=== PATIENT | female | born 1950 | race Caucasian/White ===

== ENCOUNTER → 2016-12-07 10:58 | Outpatient (CLI) | payer OTHER, MEDICARE ==
[2011-10-23 07:17] VITALS: BMI 33.5
== END | disposition home or self-care (01) ==
LOC: D.US 10:58
DX: M79.1 Myalgia (principal)

== ENCOUNTER 2017-09-24 19:03 | Emergency (ER) | payer OTHER, MEDICARE ==
[~2017-09-24] VITALS: Ht 157.5 cm; Wt 90.5 kg
[2017-09-24 19:19] VITALS: Ht 157.5 cm; Wt 90.5 kg
[2017-09-24] MEDS ORDERED: CYCLOBENZAPRINE10 MG PO (19:22)
[2017-09-24] MEDS ORDERED: OMEPRAZOLE20 M1 PO (19:22)
[2017-09-24] MEDS ORDERED: NORVASC10 MG PO (19:22)
[2017-09-25 05:29] VITALS: BP 138/75
== END 2017-09-24 22:38 | disposition home or self-care (01) ==
LOC: D.ER 19:03
DX: M54.2 Cervicalgia (principal); Z86.79 Personal history of other diseases of the circulatory system; J44.9 Chronic obstructive pulmonary disease, unspecified; Z85.528 Personal history of other malignant neoplasm of kidney; F17.200 Nicotine dependence, unspecified, uncomplicated

== ENCOUNTER → 2018-01-17 16:25 | Outpatient (CLI) | payer OTHER, MEDICARE ==
[2017-09-24 19:19] VITALS: BMI 36.5
[~2018-01-17 16:25] MED LIST: CYCLOBENZAPRINE10 MG PO; NORVASC10 MG PO; OMEPRAZOLE20 M1 PO
== END | disposition home or self-care (01) ==
LOC: D.CT 16:25
PROVIDERS: Family Medicine
DX: Z12.31 Encounter for screening mammogram for malignant neoplasm of breast (principal); G45.9 Transient cerebral ischemic attack, unspecified

== ENCOUNTER → 2018-04-18 08:26 | Outpatient (CLI) | payer OTHER, MEDICARE ==
[2017-09-24 19:19] VITALS: BMI 36.5
[2018-04-18 09:14] LABS: BASOPHILS 0.9 % (0-2); EOSINOPHILS 3.4 % (0-7); HEMATOCRIT 42.6 % (36.0-48.0); HEMOGLOBIN 14.3 g/dL (12-16); IMMATURE GRANULOCYTES 0.1 % (0-5); LYMPHOCYTES 30.8 % (15-50); MCH 29.4 pg (26.0-34.0); MCHC 33.6 g/dL (31.0-37.0); MCV 87.5 fL (80.0-100.0); MEAN PLATELET VOLUME 11.3 fL (7.4-10.4); MONOCYTES 5.7 % (2-11); NEUTROPHILS 59.1 % (40-80); PLATELET COUNT 293 10x3/uL (130-400); RBC 4.87 10x6/uL (4.00-5.40); RDW 14.2 % (11.5-14.5); WBC 6.8 10x3/uL (4.8-10.8)
[2018-04-19 08:19] LABS: IMMUNOGLOBULIN A 194 mg/dL (87-352); IMMUNOGLOBULIN G 673 mg/dL (700-1600)
[2018-04-21 18:06] LABS: IMMUNOGLOBULIN E 297 IU/mL (0-100)
== END | disposition home or self-care (01) ==
LOC: D.RT 04-16 11:00 → D.LAB 08:00 → D.RAD 09:30 → D.RT 10:00
PROVIDERS: Internal Medicine Pulmonary Disease
DX: J44.9 Chronic obstructive pulmonary disease, unspecified (principal); J30.9 Allergic rhinitis, unspecified

== ENCOUNTER → 2018-05-20 10:25 | Outpatient (CLI) | payer OTHER, MEDICARE ==
[2017-09-24 19:19] VITALS: BMI 36.5
== END | disposition home or self-care (01) ==
LOC: D.HCCARDIO 10:25
PROVIDERS: ATTEND Internal Medicine Cardiovascular Disease
DX: I25.10 Atherosclerotic heart disease of native coronary artery without angina pectoris (principal)

== ENCOUNTER 2018-05-28 07:51 | Outpatient (CLI) | payer OTHER, MEDICARE ==
[~2018-05-28] VITALS: Ht 157.5 cm; Wt 85.9 kg
--- NOTE | ~2018-05-28 | HEMODYNAMI ---
PATIENT:MARITA LADD MEDICAL RECORD: [id number] : 52 LOCATION:[facility] ADMISSION DATE: 05/28/18 Generatedon:05/28/201810:01 Patient name: MARITA LADD Patient #: [id number] SSN: D OB: 1950 Date of study: 05/28/2018 Page: Of Hemodynamic Procedure Report Patient Data Patient Demographics Procedure consent was obtained First Name: MARITA Gender: Female Last Name: JULEE : 1950 Middle Initial: A Age: 67 year(s) Patient #: [id number] Race: Unknown Additional ID: [id number] Contact details [address]: [address] [place] [address] State: [place] City: [place] Zip code: [address] Past Medical History Allergies: No known allergies Admission Admission Data Admission Date: 05/28/2018 Admission Time: 7:51 Height (in.): 62 BSA: 1.87 (m2) Height (cm.): 157.48 BMI: 34.64 (kg/m2) Weight (lbs.): 189.38 Weight (kg.): 85.9 Lab Results Lab Result Date: 05/28/2018 Lab Result Time: 0:00 Biochemistry Name Units Result Min Max BUN mg/dl 15 --(--*-)-- 7 18 Creatinine mg/dl 1.1 --(--*-)-- 0.6 1.3 Procedure Procedure Types Cath Procedure Diagnostic Procedure LHC LHC w/Coronaries FFR/IVUS Intra-Coronary IVUS Initial Sedation Charges Moderate Sedation up to 15 minutes Procedure Description Procedure Date Procedure Date: 05/28/2018 Procedure Start Time: 9:47 Procedure End Time: 9:59 Procedure Staff Name Function Randy Gallegos MD Performing Physician Brenda Ann RT Monitor Davie Rice RT Scrub Fanny Riley RN Nurse Procedure Data Cath Procedure Fluoroscopy Diagnostic fluoroscopy Total fluoroscopy Time: 1.7 time: 1.7 min min Diagnostic fluoroscopy Total fluoroscopy dose: dose: 177.5 mGy 177.5 mGy Contrast Material Contrast Material Type Amount (ml) Isovue 300 64 Entry Location Entry Primary Successful Side Size Upsize Upsize Entry Closure Succes sful Closure Location (Fr) 1 (Fr) 2 (Fr) Remarks Device Remarks Femoral Right 5 Fr 6 Fr Exoseal artery Short Estimated blood loss: 5 ml Diagnostic catheters Device Type Used For End Catheter Placement MULTIPACK Pigtail 5 Fr Procedure catheter MULTIPACK JL 4.0 5Fr Procedure catheter MULTIPACK 3DRC 5Fr Procedure catheter Procedure Complications No complications Procedure Medications Medication Administration Route Dosage Oxygen etCO2 Nasal cannula 2 l/min Lidocaine 2% added to field 20 Heparin Flush Bag added to field 2 bags (1000units/500ml NS) 0.9% NaCl I.V. 100 ml/hr Versed I.V. 1 mg Fentanyl I.V. 50 mcg Versed I.V. 1 mg Fentanyl I.V. 50 mcg Versed I.V. 1 mg Fentanyl I.V. 50 mcg Versed I.V. 1 mg Fentanyl I.V. 50 mcg Hemodynamics Rest BSA: 1.87 (m2) O2 Consumption: Estimated: 175.79 (ml/min) O2 Consumption indexed : Estimated:94.01 (ml/min/m) Heart Rate: 72 (bpm) Snapshots Pre Cath Intra NCS Post Cath Vital Signs Time Heart Resp SPO2 etCO2 NIBP (mmHg) Rhythm Pain Sedation Rate (ipm) (%) (mmHg) Status Level (bpm) 9:20:37 74 17 99 25 142/75(118) NSR 0 (11) 10(A) , No pain 9:24:59 69 16 99 40.9 143/69(113) NSR 0 (11) 10(A) , No pain 9:29:17 71 16 97 43.2 128/73(107) NSR 0 (11) 10(A) , No pain 9:33:38 72 16 95 37.1 117/73(113) NSR 0 (11) 10(A) , No pain 9:37:56 76 15 93 37.9 130/72(106) NSR 0 (11) 10(A) , No pain 9:43:03 74 17 96 41.7 131/77(112) NSR 0 (11) 9(A) , No pain 9:47:15 77 14 95 39.4 119/74(95) NSR 0 (11) 9(A) , No pain 9:51:27 79 16 95 44.8 113/83(110) NSR 0 (11) 9(A) , No pain 9:55:37 79 17 96 44.7 110/76(103) NSR 0 (11) 10(A) , No pain Medications Time Medication Route Dose Verified Delivered Reason Notes Effe ctiveness by by 9:23:50 Oxygen etCO2 2 Randy Buffie used for Nasal l/min Rosy Riley RN procedure cannula 9:23:58 Lidocaine 2% added 20ml Randy Randy for local to vial Rosy Gallegos MD anesthetic field 9:24:06 Heparin Flush added 2 Randy Randy used for Bag to bags Rosy Gallegos MD procedure (1000units/500ml field NS) 9:24:18 0.9% NaCl I.V. 100 Randy Buffie used for ml/hr Rosy Riley RN procedure 9:33:20 Versed I.V. 1 mg Randy Anayaie for Rosy Rilye RN sedation 9:33:26 Fentanyl I.V. 50 Randy Buffie for karuna Riley RN sedation 9:39:30 Versed I.V. 1 mg Randy Buffie for Rosy Riley RN sedation 9:39:34 Fentanyl I.V. 50 Randy Buffie for karuna Riley RN sedation 9:45:54 Versed I.V. 1 mg Randy Buffie for Rosy Riley RN sedation 9:45:58 Fentanyl I.V. 50 Randy Buffie for karuna Riley RN sedation 9:53:22 Versed I.V. 1 mg Randy Buffie for Rosy Riley RN sedation 9:53:27 Fentanyl I.V. 50 Randy Buffie for karuna Riley RN sedation Procedure Log Time Note 8:35:28 Patient Weight : 189.38 lbs 8:35:41 Patient Height : 62 inches 8:35:45 Signed procedure consent form obtained from patient. 8:35:47 Diagnostic Cath status Elective 8:35:49 Time tracking: Regular hours (M-F 7:00 - 5:00) 8:35:54 Plan of Care:Hemodynamics will remain stable., Cardiac rhythm will remain stable., Comfort level will be maintained., Respiratory function will remain adequate., Patient/ family verbilizes understanding of procedure., Procedure tolerated without complication., Recovers from procedure without complications.. 9:07:25 Davie Rileyyder RT(R) sent for patient. Start room use. 9:12:55 Patient received from Pre/Post Procedure Room to CCL 3 Alert and oriented. Tansferred to table in Supine position. 9:12:56 Warm blankets applied, and lianne hugger turned on for patient comfort. 9:12:56 Correct patient and procedure confirmed by team. 9:12:57 ECG and BP/O2 sat monitors applied to patient. 9:19:19 Vital chart was started 9:19:23 Baseline sample Acquired. 9:19:27 Rhythm: sinus rhythm 9:19:28 Full Disclosure recording started 9:19:39 H&P Date Dictated: 05/13/2018 Within 30 days and on chart., H&P Addendum completed by physician on day of procedure. (MUST COMPLETE FOR ALL OUTPATIENTS). 9:19:42 Family in patients room. 9:19:43 Patient NPO since Midnight. 9:19:54 Patient allergic to No known allergies 9:20:03 Is patient on blood thinner?Yes 9:20:13 PRE LOADED ON PLAVIX 9:20:16 Patient diabetic? No. 9:20:21 Previous problem with sedation/anesthesia? No ? 9:20:23 Snore? Yes 9:20:24 Sleep apnea? No 9:20:25 Deviated septum? No 9:20:26 Opens mouth fully? Yes 9:20:27 Sticks out tongue? Yes 9:20:34 Airway obstruction? Yes ASTHMA 9:20:40 Dentures? Yes IN TIGHT 9:20:43 Pre procedure: right dorsailis pedis pulse 1+ Palpable, but thready & weak; easily obliterated 9:20:46 Patient pain scale 0/10 ?. 9:20:49 IV patent on arrival in left hand with 0.9% NaCl at [facility]. 9:23:50 Oxygen 2 l/min etCO2 Nasal cannula was administered by Fanny Riley RN; used for procedure; 9:23:58 Lidocaine 2% 20ml vial added to field was administered by Randy Gallegos MD; for local anesthetic; 9:24:06 Heparin Flush Bag (1000units/500ml NS) 2 bags added to field was administered by Randy Gallegos MD; used for procedure; 9:24:18 0.9% NaCl 100 ml/hr I.V. was administered by Fanny Riley RN; used for procedure; 9::43 Lab results completed and on chart. 9::12 Lab Result : BUN 15 mg/dl 9::12 Lab Result : Creatinine 1.1 mg/dl 9::25 Right groin area was prepped with chlora-prep and draped in sterile fashion 9:: Alarms reviewed by R. N. 9:: Sharps counted by scrub and verified by R.N. 9:28:02 Use device set Femoral Dx 9:28:03 ACIST Syringe (43616) opened to sterile field. 9:28:04 Bag Decanter (2002S) opened to sterile field. 9:28:05 ACIST Hand Control (25631) opened to sterile field. 9:28:05 ACIST Manifold (17462) opened to sterile field. 9:28:06 Tegaderm 4 x 4 (1626W) opened to sterile field. 9:28:07 Medline Cath Pack ([id number]) opened to sterile field. 9:28:08 DIAGNOSTIC WIRE .035 260cm J wire (436952) opened to sterile field. 9:28:08 DIAGNOSTIC Multipack 5Fr catheter set (SU7209) opened to sterile field. 9:28:09 SHEATH 5FR [place] (SNS404) opened to sterile field. 9:29:48 Zero performed for pressure channel P1 9:29:53 Zero performed for pressure channel P1 9:32:30 --------ALL STOP TIME OUT------ 9:32:31 Final Timeout: patient, procedure, and site verified with staff and physician. All members of the team are in agreement. 9:32:32 Right groin site verified by team. 9:32:35 Maximum allowable Isovue 300 dose 300ml. Physician notified. (300ml for normal creatinines. For patients with creatinine of 1.7 or higher multiply weight(kg) x 5 divided by creatinine.) 9:32:39 Fire Safety Assessment: A--An alcohol-based skin anteseptic being used preoperatively., C--Open oxygen or nitrous oxide is being used., D--An ESU, laser, or fiber-optic light is being used. 9:32:41 Physical assessment completed. ASA score P 2 - A patient with mild systemic disease as per Randy Gallegos MD. 9:32:44 Sedation plan: IV Moderate Sedation Medication:Versed, Fentanyl 9:33:20 Versed 1 mg I.V. was administered by Fanny Riley RN; for sedation; 9:33:26 Fentanyl 50 mcg I.V. was administered by Fanny Riley RN; for sedation; 9:39:30 Versed 1 mg I.V. was administered by Fanny Riley RN; for sedation; 9:39:34 Fentanyl 50 mcg I.V. was administered by Fanny Riley RN; for sedation; 9:45:54 Versed 1 mg I.V. was administered by Fanny Riley RN; for sedation; 9:45:58 Fentanyl 50 mcg I.V. was administered by Fanny Riley RN; for sedation; 9:47:24 Procedure started. 9:47:51 Local anesthetic to right femoral artery with Lidocaine 2% by Randy Gallegos MD.INITIAL ACCESS ONLY 9:49:04 A 5 Fr sheath was inserted into the Right Femoral artery 9:49:10 A MULTIPACK Pigtail 5 Fr catheter was advanced over the wire and used for Procedure. 9:49:12 LV gram done using PREEZ 9:49:15 Injector settings: Ml/sec: 10, Volume: 20, 9:49:42 EF : 70 % 9:49:42 Catheter removed. 9:49:50 A MULTIPACK JL 4.0 5Fr catheter was advanced over the wire and used for Procedure. 9:50:48 LCA angiography performed. 9:51:38 A MULTIPACK 3DRC 5Fr catheter was advanced over the wire and used for Procedure. 9:52:17 RCA angiography performed. 9:52:18 Catheter removed. 9:52:33 SHEATH 6FR [place] (IVD934) opened to sterile field. 9:52:34 INFLATOR Merit BasixCompak (KX6205) opened to sterile field. 9:52:34 CHOICE PT Extra Support 182cm wire ([id number]) opened to sterile field. 9:52:38 [place] IVUS Catheter (91226U) opened to sterile field. 9:52:44 Sheath upsized to a 6 Fr Short. 9:53:10 GUIDE 6FR XBLAD 3.5 catheter ([id number]) opened to sterile field. 9:53:22 Versed 1 mg I.V. was administered by Fanny Riley RN; for sedation; 9:53:27 Fentanyl 50 mcg I.V. was administered by Fanny Riley RN; for sedation; 9:53:27 6 Fr XBLAD 3.5 guide catheter was inserted over the wire 9:53:51 CHOICE ES 182 wire advanced. 9:54:14 Wire advanced across lesion. 9:55:09 IVUS catheter advanced over wire. 9:55:11 IVUS pass to Circ lesion performed. 9:55:11 IVUS catheter removed over wire. 9:55:32 Wire removed. 9:55:32 Guide catheter removed. 9:55:38 EXOSEAL 6Fr (EX600) opened to sterile field. 9:56:18 Sheath removed intact; hemostasis achieved with Exoseal to the Right Femoral artery. 9:56:24 Procedure ended.(Physican Out) 9:56:35 Fluoroscopy time 01.70 minutes. 9:56:40 Fluoroscopy dose: 177.5 mGy 9:56:40 Flurop Dose total: 177.5 9:56:44 Contrast amount:Isovue 300 64ml. 9:56:45 Sharps counted by scrub and verified by R.N. 9:56:48 Post-op/insertion site Right Femoral artery dressed using a 4 x 4 and Tegaderm. 9:57:23 Post-procedure physical assessment completed. ASA score P 2 - A patient with mild systemic disease as per Randy Gallegos MD. 9:57:26 Post procedure rhythm: sinus rhythm 9:57:28 Estimated blood loss: 5 ml 9:57:29 Post procedure instruction explained to patient.Patient verbalizes understanding. 9:57:29 Patient needs reinforcement of post procedure teaching. 9:57:56 Procedure type changed to Cath procedure, Diagnostic procedure, LHC, LHC w/Coronaries, FFR/IVUS, Intra-Coronary IVUS Initial, Sedation Charges, Moderate Sedation up to 15 minutes 9:58:53 Procedure and supply charges have been captured, reviewed, submitted and are correct. 9:58:55 Procedure Complication : No complications 9:58:57 Vital chart was stopped 9:58:57 See physician's report for complete and final results. 9:58:58 Report given to Pre/Post Procedure Room. 9:59:00 Patient transfered to Pre/Post Procedure Room with Bed. 9:59:02 Procedure ended. 9:59:02 Full Disclosure recording stopped 9:59:09 End room use (Document Last) Device Usage Item Name Manufacture Quantity Catalog Number Hospital Part Current Minim al Lot# / Charge Number Stock Stock Serial# Code ACIST Acist 1 42979 114642 623253 217607 20 Syringe Medical (87162) Systems Inc Bag Microtek 1 743987 62865 458028 5 Decanter Medical Inc. () ACIST Hand Acist 1 30457 655127 734755 168460 5 Control Medical (47423) Systems Inc ACIST Acist 1 58105 385552 860117 275753 5 Manifold Medical (35611) Systems Inc Tegaderm 4 3M 1 1626W 768954 612740 948362 5 x 4 (1626W) Medline Medline 1 [id number] 218773 95430 709029 5 Cath Pack ([id number]) DIAGNOSTIC [place] 1 023755 434504 908385 234351 30 WIRE .035 260cm J wire (877272) DIAGNOSTIC Cardinal 1 LZ4970 311427 39588 243899 30 Multipack Health 5Fr catheter set (DZ2561) SHEATH 5FR Terumo 1 FZY594 982207 967515 940084 5 [place] (XHL027) MULTIPACK Cardinal 1 730381 5 Pigtail 5 Health Fr catheter MULTIPACK Cardinal 1 750347 5 JL 4.0 5Fr Health catheter MULTIPACK Cardinal 1 051598 5 3DRC 5Fr Health catheter SHEATH 6FR Terumo 1 AUU099 099362 696780 875807 40 [place] (VBV693) INFLATOR Merit 1 TU2610 219326 480659 438540 15 baseclick Medical BasixCompak (JU1162) CHOICE PT [place] 1 [id number] 723778 146314 871134 5 Extra Scientific Support 182cm wire ([id number]) [place] 1 40325E 862076 007829 280843 8 [place] Eag[place] IVUS Catheter (78226C) GUIDE 6FR Cardinal 1 [id number] 006207 051323 072439 10 XBLAD 3.5 Health catheter (58271153) EXOSEAL 6Fr Cardinal 1 EX600 463401 786658 122945 10 (EX600) Health Signature Audit [place] Stage Time Signature Unsigned Intra-Procedure 05/28/2018 Brenda Ann 10:01:13 AM RT(R) Signatures Monitor : Brenda Ann Signature : RT Date : Time : [place] [id number] [place] [address]
[2018-05-28] MEDS ORDERED: K-TAB10 MEQ PO (08:10)
[2018-05-28] MEDS ORDERED: LIPITOR10 MG PO (08:10)
[2018-05-28] MEDS ORDERED: ROPINIROLE HCL2 MG PO (08:11)
[2018-05-28] MEDS ORDERED: HYDROCODON-ACE1 EA10 PO (08:11)
[2018-05-28] MEDS ORDERED: IPRAT-ALBUT 0.5-3 ML UPD (08:12)
[2018-05-28] MEDS ORDERED: CATAPRES0.1 MG PO (08:12)
[2018-05-28] MEDS ORDERED: BAYER CHEWABLE81 MG PO (08:14)
[2018-05-28] MEDS ORDERED: ANORO ELLIPTA1 EACH INH (08:14)
[2018-05-28] MEDS ORDERED: VENTOLIN INH (08:14)
[2018-05-28] MEDS ORDERED: TESSALON PERLE100 MG PO (08:15)
[2018-05-28] MEDS ORDERED: MUCINEX600 MG PO (08:15)
[2018-05-28] MEDS ORDERED: CLARITIN 10 MG10 MG PO (08:15)
[2018-05-28 08:24] VITALS: BP 153/77; Ht 157.5 cm; Wt 85.9 kg
[2018-05-28 08:44] LABS: ANION GAP 11.7 mmol/L (8-16); CALCIUM 8.8 mg/dL (8.5-10.1); CARBON DIOXIDE 31.1 mmol/L (21.0-32.0); CREATININE - SERUM 1.1 mg/dL (0.6-1.3); POTASSIUM - SERUM 3.8 mmol/L (3.5-5.1)
[2018-05-28 09:48] LABS: EOSINOPHILS 2.9 % (0-7); HEMATOCRIT 45.2 % (36.0-48.0); HEMOGLOBIN 14.6 g/dL (12-16); IMMATURE GRANULOCYTES 0.2 % (0-5); LYMPHOCYTES 28.9 % (15-50); MCH 28.8 pg (26.0-34.0); MCHC 32.3 g/dL (31.0-37.0); MCV 89.2 fL (80.0-100.0); MEAN PLATELET VOLUME 11.2 fL (7.4-10.4); MONOCYTES 8.2 % (2-11); NEUTROPHILS 58.8 % (40-80); RBC 5.07 10x6/uL (4.00-5.40); RDW 14.9 % (11.5-14.5); WBC 6.2 10x3/uL (4.8-10.8)
[2018-05-28 10:05] LABS: PLATELET COUNT 364 10x3/uL (130-400)
--- NOTE | 2018-05-31 15:03 | OP ---
PATIENT NAME: MARITA LADD MEDICAL RECORD: [id number] :52 LOCATION:D.CAT ADMISSION DATE: SURGEON: SERA MILES MD DATE OF OPERATION: 05/28/2018 PROCEDURES: 1. Left heart catheterization. 2. Selective coronary angiography. 3. Left ventriculogram. 4. Intravascular ultrasound. INDICATION: Angina and coronary artery disease. PROCEDURE IN DETAIL: After informed consent was obtained and after a detailed description of risks, benefits as well as alternative therapies, the patient elected to proceed with angiogram and heart catheterization. The right femoral area was prepped and draped in normal sterile fashion. Right femoral artery was cannulated via modified Seldinger technique with placement of 6-Israeli sheath. All catheters exchanged through this sheath. FINDINGS: Left ventriculogram was performed in standard 30-degree PEREZ view reveals good cardiac wall motion throughout all segments. Overall ejection fraction estimated 60%. SELECTIVE CORONARY ANGIOGRAPHY: 1. Left main is with no significant angiographic disease. 2. Left anterior descending has moderate irregularities, but no flow-limiting stenosis. 3. The left circumflex has a previously placed stent. This is widely patent confirmed by intravascular ultrasound. No disease elsewise throughout the circumflex or its branches. 4. Right coronary artery has mild irregularities, but no flow-limiting stenosis. OVERALL IMPRESSION: Wide patency of the previously placed stent in the circumflex, no disease elsewise. Continue medical management of the coronary artery disease and cardiac risk factors. TRANSINT:[id number] Voice Confirmation ID: [id number] DOCUMENT ID: [id number] SERA MILES MD at 1503 CC: [id number] DICTATION DATE: 05/28/18 0959 DIRECTOR OF INFECTION CONTROL: 05/28/18 1207 DEP CLI 05/28/18 [place] [id number] [place] [address]
== END 2018-05-28 12:05 | disposition home or self-care (01) ==
LOC: D.CATH 07:51
PROVIDERS: ATTEND Internal Medicine Interventional Cardiology
DX: I25.119 Atherosclerotic heart disease of native coronary artery with unspecified angina pectoris (principal); Z01.812 Encounter for preprocedural laboratory examination

== ENCOUNTER 2018-07-18 09:00 | Outpatient (CLI) | payer OTHER, MEDICARE ==
[2018-05-28 08:24] VITALS: BMI 34.6
[~2018-07-18 09:00] MED LIST changes: +ANORO ELLIPTA1 EACH INH; +BAYER CHEWABLE81 MG PO; +CATAPRES0.1 MG PO; +CLARITIN 10 MG10 MG PO; +HYDROCODON-ACE1 EA10 PO; +IPRAT-ALBUT 0.5-3 ML UPD; +K-TAB10 MEQ PO; +LIPITOR10 MG PO; +MUCINEX600 MG PO; +ROPINIROLE HCL2 MG PO; +TESSALON PERLE100 MG PO; +VENTOLIN INH
== END 2018-07-18 10:00 | disposition home or self-care (01) ==
LOC: D.MAMMO 09:00
PROVIDERS: ATTEND Family Medicine
DX: Z12.31 Encounter for screening mammogram for malignant neoplasm of breast (principal)

== ENCOUNTER → 2019-03-12 18:52 | Outpatient (CLI) | payer OTHER, MEDICARE ==
[2018-05-28 08:24] VITALS: BMI 34.6
== END | disposition home or self-care (01) ==
LOC: D.LABREF 18:52
PROVIDERS: ATTEND Orthopaedic Surgery
DX: M19.012 Primary osteoarthritis, left shoulder (principal)

== ENCOUNTER 2019-03-21 08:33 | Inpatient (IN) | payer OTHER, MEDICARE ==
[~2019-03-21] VITALS: Ht 157.5 cm; Wt 81.8 kg
[2019-03-28 10:42] LABS: BASOPHILS 0.9 % (0-2); EOSINOPHILS 2.5 % (0-7); HEMATOCRIT 44.5 % (36.0-48.0); HEMOGLOBIN 14.6 g/dL (12-16); IMMATURE GRANULOCYTES 0.2 % (0-5); LYMPHOCYTES 26.3 % (15-50); MCH 29.5 pg (26.0-34.0); MCHC 32.8 g/dL (31.0-37.0); MCV 89.9 fL (80.0-100.0); MEAN PLATELET VOLUME 10.9 fL (7.4-10.4); NEUTROPHILS 64.1 % (40-80); PLATELET COUNT 316 10x3/uL (130-400); RBC 4.95 10x6/uL (4.00-5.40); RDW 14.8 % (11.5-14.5); WBC 5.6 10x3/uL (4.8-10.8)
[2019-03-28] MEDS ORDERED: HYDROCODON-ACE1 EA10 PO (10:48)
[2019-03-28] MEDS ORDERED: FUROSEMIDE20 MG PO (10:49)
[2019-03-28 11:12] LABS: ANION GAP 8.6 mmol/L (8-16); CALCIUM 8.7 mg/dL (8.5-10.1); CARBON DIOXIDE 33.4 mmol/L (21.0-32.0)
[2019-03-28 11:13] LABS: APTT 25.9 SECONDS (22.8-39.4); INR 0.93 (0.85-1.17); PROTIME 12.4 SECONDS (11.6-15.0)
[2019-03-28 11:32] LABS: APPEARANCE CLEAR (CLEAR); BILIRUBIN NEGATIVE (NEGATIVE); COLOR YELLOW (YELLOW); GLUCOSE NEGATIVE (NEGATIVE); KETONE NEGATIVE (NEGATIVE); NITRITE NEGATIVE (NEGATIVE); PROTEIN NEGATIVE (NEGATIVE); UROBILINOGEN NORMAL (NORMAL)
[2019-03-31] MEDS ORDERED: DONEPEZIL HCL5 MG PO (08:03)
[2019-03-31] MEDS ORDERED: CELEXA20 MG PO (08:04)
[2019-03-31] MEDS ORDERED: ISOSORBIDE DINI30 MG PO (08:04)
[2019-03-31 08:07] VITALS: BP 118/63; BMI 30.6
[2019-03-31 13:31] VITALS: BP 117/43
[2019-03-31 15:19] VITALS: BP 111/58; Ht 157.5 cm; Wt 81.8 kg
--- NOTE | 2019-03-31 18:11 | NUR ---
PATIENT RESTING WITH EYES CLOSED, AROUSES EASILY. DENIES PAIN , DRESSING TO LEFT SHOULDER C/D/I. ICE PACK APPLIED TO LEFT SHOULDER, SLING INTACT. CL IN REACH
--- NOTE | 2019-03-31 19:25 | NUR ---
IN BED WITH ARM IN SLING AND ICE PACKS APPLIED, ABLE TO VOICE ALL NEEDS. DENIES PAIN AT THIS TIME. SHOWS NO S/S OF ANY ACUTE DISTRESS.
[2019-03-31 21:03] VITALS: BP 100/62
[2019-04-01 00:30] VITALS: BP 108/67
[2019-04-01 04:15] VITALS: BP 121/54
[2019-04-01 06:08] LABS: HEMATOCRIT 41.2 % (36.0-48.0); HEMOGLOBIN 13.1 g/dL (12-16); MCH 28.9 pg (26.0-34.0); MCHC 31.8 g/dL (31.0-37.0); MCV 90.7 fL (80.0-100.0); MEAN PLATELET VOLUME 11.8 fL (7.4-10.4); RBC 4.54 10x6/uL (4.00-5.40); RDW 14.7 % (11.5-14.5); WBC 11.3 10x3/uL (4.8-10.8)
[2019-04-01 07:53] VITALS: BP 137/75
[2019-04-01] MEDS ORDERED: HYDROCODON-ACE1 EA10 PO (09:41)
--- NOTE | 2019-04-01 11:30 | NUR ---
PATIENT RECIEVED DC INSTRUCTIONS. VERBALIZED UNDERSTANDING. IV REMOVED WITH CATH TIP INTACT. EXPLAINED TO PICK PRESCRIPTION UP AT [facility]. NO QUESTIONS AT THIS TIME. WAITING FOR TRANSPORTATION. CALL LIGHT WITHIN REACH.
[2019-04-01 11:31] VITALS: BP 118/62
--- NOTE | 2019-04-03 11:49 | OP ---
PATIENT NAME: MARITA LADD MEDICAL RECORD: [id number] :52 LOCATION:D.MS [id number] ADMISSION DATE:03/31/19 SURGEON: JERRICA CELMENT MD DATE OF OPERATION: 03/31/2019 PREOPERATIVE DIAGNOSIS: Degenerative arthritis of left shoulder. POSTOPERATIVE DIAGNOSIS: Degenerative arthritis of left shoulder. PROCEDURE: Left total shoulder arthroplasty. SURGEON: Jerrica Clement MD EMBEDDED SOFTWARE ENGINEER: Gunner Lincoln APN INTRAOPERATIVE COMPLICATIONS: None. SUMMARY OF PATHOLOGIC FINDINGS: The patient was indeed found to have glenohumeral degenerative osteoarthritis consistent with preoperative radiographs and patient diagnosis. IMPLANTS USED: Arthrex total shoulder system was utilized, size 47 x 18 humeral head component, size 7 short stem and a size small glenoid component. ESTIMATED BLOOD LOSS: 250 cc. OPERATIVE SUMMARY IN DETAIL: After obtaining the appropriate preoperative orthopedic surgery consent as well as anesthetic consultation, evaluation, and clearance, the patient was brought to the operating room and placed on the operating table in supine position. After general laryngeal mask airway was administered, the patient was placed in the beach chair position. All pressure points were well padded. She was held firmly to the operating table using the vacuum pack suction system. Left upper extremity and shoulder were prepped and draped in routine sterile fashion. At this point, the appropriate timeout was taken and agreed upon by all after given the patient's unique patient identifiers. Deltopectoral incision was then created. The cephalic vein was identified and protected. The clavipectoral fascia was incised. A brown retractor was utilized to retract the deltoid laterally and the conjoined tendon was gently retracted medially. The subscapularis was taken down using a peel method. After identification of the biceps tendon, the biceps tendon was tagged and then saved for later soft tissue tenodesis. Subscap was peeled off the lesser tuberosity. The shoulder was then dislocated into the incision itself and then full view and good exposure of the humeral head. Humeral head cut was made using humeral head cutting guide. Serial and sequential reaming and broaching were done to a size 7. A size 7 trial with a cup protector was put into place and the glenoid was visualized. Circumferential labrectomy was then followed by placing the center pin followed by planar reaming using a Nautilus style reamer. Having completed this and all labrum removed, the wound was irrigated and final glenoid preparations were achieved. Again, after further irrigation, the small peg and keel glenoid from Arthrex was placed. All excess cement was removed. After the cement was allowed to harden, attention was turned to replacement of the proximal humerus. Trial was taken out and the final component was articulated on the back field tamped into place. The shoulder was reduced at the appropriate posterior translation for connection. At this point, a gram of vancomycin and a gram of tobramycin was placed in the OPERATIVE REPORT [id number] MARITA LADD wound. Subscapularis was reapproximated back to the lesser tuberosity in transosseous fashion using #2 Ethibond by Gunner Goldberg. The deltopectoral incision was closed with #1 Vicryl, 2-0 Vicryl and skin tess. Sterile dressings were applied. The patient was awakened and taken to recovery room in stable condition. All final needle and sponge counts were correct. TRANSINT:[id number] Voice Confirmation ID: [id number] DOCUMENT ID: [id number] RACQUEL MUÑOZ, JERRICA ANDERSON at 1149 CC: [id number] DICTATION DATE: 04/01/19 09 JAR CAPPER: 04/01/19 1141 DIS IN 04/01/19 [facility] [address] [place] [address]
== END 2019-04-01 13:26 | disposition home or self-care (01) | DRG 483 ==
LOC: D.SDCHOLD 03-31 07:30 → D.MS 03-31 13:29
PROVIDERS: ADMIT Orthopaedic Surgery; ATTEND Orthopaedic Surgery
PROC: 0RRK0JZ Replacement of Left Shoulder Joint with Synthetic Substitute, Open Approach (ICD-10-PCS; principal; 2019-03-31 09:45)
DX: M19.012 Primary osteoarthritis, left shoulder (principal); J44.9 Chronic obstructive pulmonary disease, unspecified; K21.9 Gastro-esophageal reflux disease without esophagitis; I10 Essential (primary) hypertension

== ENCOUNTER 2019-06-04 17:03 | Emergency (ER) | payer OTHER, MEDICARE ==
[~2019-06-04] VITALS: Ht 157.5 cm; Wt 76.4 kg
[~2019-06-04 17:03] MED LIST changes: +CELEXA20 MG PO; +DONEPEZIL HCL5 MG PO; +FUROSEMIDE20 MG PO; +ISOSORBIDE DINI30 MG PO
[2019-06-04 17:20] VITALS: BP 132/56; Ht 157.5 cm; Wt 76.4 kg
== END 2019-06-04 19:38 | disposition home or self-care (01) ==
LOC: D.ER 17:03
DX: M25.512 Pain in left shoulder (principal); M25.522 Pain in left elbow; M79.89 Other specified soft tissue disorders; J44.9 Chronic obstructive pulmonary disease, unspecified; Z72.0 Tobacco use; K21.9 Gastro-esophageal reflux disease without esophagitis

== ENCOUNTER 2019-09-03 22:19 | Observation (INO) | payer OTHER, MEDICARE ==
[~2019-09-03] VITALS: Ht 152.4 cm; Wt 80.0 kg
--- NOTE | ~2019-09-03 | HEMODYNAMI ---
PATIENT:MARITA LADD MEDICAL RECORD: [id number] : 52 LOCATION:[facility] [address]# [id number] ADMISSION DATE: 09/03/19 Generatedon:09/04/201912:21 Patient name: MARITA LADD Patient #: [id number] SSN: [id number] : 1950 Date of study: 09/04/2019 Page: Of Hemodynamic Procedure Report Patient Data Patient Demographics Procedure consent was obtained First Name: MARITA Gender: Female Last Name: JULEE : 1950 Middle Initial: A Age: 68 year(s) Patient #: [id number] Race: Unknown SSN: [id number] Additional ID: [id number] Contact details [address]: [address] [place] [address] State: [place] City: [place] Zip code: [address] Past Medical History History of disease Date Diagnosis Comments CAD Allergies: No allergy information Admission Admission Data Admission Date: 09/03/2019 Admission Time: 22:57 Arrival Date: 09/04/2019 Arrival Time: 0:00 Admit Source: Other Insurance Payor: Medicare, Room #: D.2114 Medicaid HIC #: [id number] Height (in.): 59.84 BSA: 1.77 (m2) Height (cm.): 152 BMI: 34.63 (kg/m2) Weight (lbs.): 176.37 Weight (kg.): 80 Lab Results Lab Result Date: 09/04/2019 Lab Result Time: 0:00 Biochemistry Name Units Result Min Max BUN mg/dl 15 --(--*-)-- 7 18 Creatinine mg/dl 1.2 --(---*)-- 0.6 1.3 eGFR ml/min 47 *-(----)-- 90 120 NONAFRICAN Procedure Procedure Types Cath Procedure Diagnostic Procedure LHC LHC w/Coronaries Procedure Description Procedure Date Procedure Date: 09/04/2019 Procedure Start Time: 12:10 Procedure End Time: 12:18 Procedure Staff Name Function Roshan Ruiz MD Performing Physician Gerri Menezes RT Monitor Violeta Warner RN Nurse Angie Braun RT Scrub Procedure Data Cath Procedure Fluoroscopy Diagnostic fluoroscopy Total fluoroscopy Time: 1.5 time: 1.5 min min Diagnostic fluoroscopy Total fluoroscopy dose: 327 dose: 327 mGy mGy Contrast Material Contrast Material Type Amount (ml) Isovue 300 56 Entry Location Entry Primary Successful Side Size Upsize Upsize Entry Closure Succes sful Closure Location (Fr) 1 (Fr) 2 (Fr) Remarks Device Remarks Femoral Right 5 Fr Exoseal artery Estimated blood loss: 10 ml Diagnostic catheters Device Type Used For End Catheter Placement MULTIPACK JL 4.0 5Fr Procedure catheter MULTIPACK 3DRC 5Fr Procedure catheter MULTIPACK Pigtail 5 Fr Procedure catheter Procedure Complications No complications Procedure Medications Medication Administration Route Dosage 0.9% NaCl I.V. 100 ml/hr Oxygen etCO2 Nasal cannula 2 l/min Lidocaine 2% added to field 20 Heparin Flush Bag added to field 2 bags (1000units/500ml NS) Versed I.V. 2 mg Fentanyl I.V. 50 mcg Fentanyl I.V. 50 mcg Hemodynamics Rest BSA: 1.77 (m2) O2 Consumption: Estimated: 160.6 (ml/min) O2 Consumption indexed: Estimated:90.73 (ml/min/m) Heart Rate: 65 (bpm) Pressure Samples Time Site Value (mmHg) Purpose Heart Use Rate(bpm) 12:15 LV 118/7,17 Snapshot 71 Gradients Valve Time Site Site Mean SEP/DFP Peak To Heart Use 1 2 (mmHg) (sec/min) Peak Rate (mmHg) (bpm) Aortic 12:15 LV AO 68 Snapshots Pre Cath Intra NCS Post Cath Vital Signs Time Heart Resp SPO2 etCO2 NIBP Rhythm Pain Sedation Rate (ipm) (%) (mmHg) (mmHg) Status Level (bpm) 11:52:32 73 14 99 21.8 128/61(80) NSR 0 (11) 10(A) , No pain 11:56:48 71 11 94 47.1 111/63(90) NSR 0 (11) 10(A) , No pain 12:01:00 69 10 95 50.8 107/60(83) NSR 0 (11) 10(A) , No pain 12:05:16 69 10 97 52.3 111/59(78) NSR 0 (11) 10(A) , No pain 12:09:34 72 11 98 38.1 103/55(81) NSR 0 (11) 10(A) , No pain 12:13:48 68 12 96 60.6 113/55(88) NSR 0 (11) 10(A) , No pain 12:18:08 69 6 96 51.6 119/58(97) NSR 0 (11) 10(A) , No pain Medications Time Medication Route Dose Verified Delivered Reason Notes Eff ectiveness by by 11:51:26 0.9% NaCl I.V. 100 Roshan Violeta used for ml/hr Sara Timmy procedure RN 11:51:33 Oxygen etCO2 2 Roshan Coughlinyla used for Nasal l/min [facility]ula MD DANGELO 11:51:38 Lidocaine 2% added 20ml Roshan Islas for local to vial [facility] anesthetic field MD MUÑOZ 11:51:43 Heparin Flush added 2 Roshan Roshan used for Bag to bags [facility] procedure (1000units/500ml field MD MUÑOZ NS) 12:10:09 Versed I.V. 2 mg Roshan Coughlinyla for Sara Timmy sedation RN 12:10:18 Fentanyl I.V. 50 Roshan Coughlinyla for mcg SaraEn Warner sedation RN 12:13:52 Fentanyl I.V. 50 Roshan Coughlinyla for mcg SaraEn Warner sedation MD DANGELOpurchasing expeditor Log Time Note 11:23:15 Arrival Date: 09/04/2019 12:00:00 AM 11:23:32 Admit Source: Other 11:23:37 Insurance Payor : Medicare, Medicaid 11:25:17 Patient Height : 59.84 inches 11:25:20 Patient Weight : 176.37 lbs 11:26:06 Lab Result : eGFR NONAFRICAN 47 ml/min 11:26:06 Lab Result : Creatinine 1.2 mg/dl 11:26:06 Lab Result : BUN 15 mg/dl 11:37:20 Procedure Status Urgent Heart Cath (IP). 11:37:23 Angie OSMAN(R) (CV) sent for patient. Start room use. 11:37:24 Time tracking: Regular hours (M-F 7:00 - 5:00) 11:37:27 Plan of Care:Hemodynamics will remain stable., Cardiac rhythm will remain stable., Comfort level will be maintained., Respiratory function will remain adequate., Patient/ family verbilizes understanding of procedure., Procedure tolerated without complication., Recovers from procedure without complications.. 11:37:35 H&P Date Dictated: 09/04/2019 ER History on chart.. 11:38:22 Patient allergic to No allergy information 11:48:38 Patient received from Med II to CCL 1 Alert and oriented. Tansferred to table in Supine position. 11:48:41 Signed procedure consent form obtained from patient. 11:48:53 Warm blankets applied, and lianne hugger turned on for patient comfort. 11:48:54 Correct patient and procedure confirmed by team. 11:48:55 ECG and BP/O2 sat monitors applied to patient. 11:49:05 Pre-procedure instructions explained to patient. 11:49:05 Pre-op teaching completed and patient verbalized understanding. 11:49:11 Family in patients room. 11:49:13 Patient NPO since Midnight. 11:49:51 Is patient on blood thinner?No 11:49:53 Patient diabetic? No. 11:49:56 Patient not . Patient is over age 55. 11:50:02 Previous problem with sedation/anesthesia? No ? 11:50:02 Snore? Yes 11:50:03 Sleep apnea? Yes 11:50:04 Deviated septum? No 11:50:05 Opens mouth fully? Yes 11:50:07 Sticks out tongue? Yes 11:50:14 Airway obstruction? Yes COPD, BRONCHITIS 11:50:31 Dentures? No ? 11:50:34 Pre procedure: right dorsailis pedis pulse 1+ Palpable, but thready & weak; easily obliterated 11:50:48 NO RADIAL 11:51:00 IV patent on arrival in left antecubital with 0.9% NaCl at O. 11:51:16 Vital chart was started 11:51:25 Lab results completed and on chart. 11:51:26 0.9% NaCl 100 ml/hr I.V. was administered by Violeta Warner RN; used for procedure; Verbal order read back and verified. 11:51:31 Right groin area was prepped with chlora-prep and draped in sterile fashion 11:51:32 Alarms reviewed by R. N. 11:51:33 Oxygen 2 l/min etCO2 Nasal cannula was administered by Violeta Warner RN; used for procedure; Verbal order read back and verified. 11:51:38 Lidocaine 2% 20ml vial added to field was administered by Roshan Ruiz MD; for local anesthetic; Verbal order read back and verified. 11:51:38 Sharps counted by scrub and verified by R.N. 11:51:43 Heparin Flush Bag (1000units/500ml NS) 2 bags added to field was administered by Roshan Ruiz MD; used for procedure; Verbal order read back and verified. 11:51:45 Baseline sample Acquired. 11:51:48 Rhythm: sinus rhythm 11:51:49 Full Disclosure recording started 11:51:56 Use device set Femoral Dx 11:51:57 ACIST Syringe (32829) opened to sterile field. 11:51:57 Bag Decanter (2002S) opened to sterile field. 11:51:58 ACIST Manifold (77673) opened to sterile field. 11:51:59 ACIST Hand Control (56588) opened to sterile field. 11:52:00 Tegaderm 4 x 4 (1626W) opened to sterile field. 11:52:01 Medline Cath Pack ([id number]) opened to sterile field. 11:52:02 DIAGNOSTIC Multipack 5Fr catheter set (CX7963) opened to sterile field. 11:52:03 SHEATH 5FR Spencer (QBI126) opened to sterile field. 11:52:03 EMERALD Guide Wire (913-146) opened to sterile field. 12:02:19 Zero performed for pressure channel P1 12:09:29 --------ALL STOP TIME OUT------ 12:09:30 Final Timeout: patient, procedure, and site verified with staff and physician. All members of the team are in agreement. 12:09:32 Right groin site verified by team. 12:09:37 Fire Safety Assessment: A--An alcohol-based skin anteseptic being used preoperatively., C--Open oxygen or nitrous oxide is being used., D--An ESU, laser, or fiber-optic light is being used. 12:09:40 Physical assessment completed. ASA score P 2 - A patient with mild systemic disease as per Roshan Ruiz MD. 12:09:43 3a) 45-59 Moderately reduced kidney function. 12:09:47 Maximum allowable contrast dose (3.7 X eGFR X 0.75)130 ml. 12:09:50 Sedation plan: IV Moderate Sedation Medication:Versed, Fentanyl 12:09:54 Procedure started. 12:10:09 Versed 2 mg I.V. was administered by Violeta Warner RN; for sedation; Verbal order read back and verified. 12:10:12 Local anesthetic to right femoral artery with Lidocaine 2% by Roshan Ruiz MD.INITIAL ACCESS ONLY 12:10:18 Fentanyl 50 mcg I.V. was administered by Violeta Warner RN; for sedation; Verbal order read back and verified. 12:10:20 A 5 Fr sheath was inserted into the Right Femoral artery 12:10:52 A MULTIPACK JL 4.0 5Fr catheter was advanced over the wire and used for Procedure. 12:10:54 LCA angiography performed. 12:13:52 Fentanyl 50 mcg I.V. was administered by Violeta Warner RN; for sedation; Verbal order read back and verified. 12:14:14 Catheter removed. 12:14:22 A MULTIPACK 3DRC 5Fr catheter was advanced over the wire and used for Procedure. 12:14:35 RCA angiography performed. 12:14:38 Catheter removed. 12:14:47 A MULTIPACK Pigtail 5 Fr catheter was advanced over the wire and used for Procedure. 12:14:51 LV angiography performed. 12:15:41 EF : 55 % 12:15:50 Catheter removed. 12:15:52 EXOSEAL 5Fr (EX500) opened to sterile field. 12:16:13 Sheath removed intact; hemostasis achieved with Exoseal to the Right Femoral artery. 12:16:16 Procedure ended.(Physican Out) 12:16:25 Fluoroscopy time 01.50 minutes. 12:16:30 Fluoroscopy dose: 327 mGy 12:16:30 Flurop Dose total: 327 12:16:36 Dose Area Product 32425 mGy/cm. 12:16:39 Contrast amount:Isovue 300 56ml. 12:16:42 Maximum allowable dose exceeded? No. 12:16:45 Insertion/operative site no bleeding no hematoma. 12:17:16 Post Procedure Pulses reassessed and unchanged 12:17:20 Post-procedure physical assessment completed. ASA score P 2 - A patient with mild systemic disease as per Roshan Ruiz MD. 12:17:23 Post procedure rhythm: unchanged. 12:17:27 Estimated blood loss: 10 ml 12:17:30 Post procedure instruction explained to patient.Patient verbalizes understanding. 12:17:48 Procedure and supply charges have been captured, reviewed, submitted and are correct. 12:18:05 Procedure and supply charges have been captured, reviewed, submitted and are correct. 12:18:08 Procedure Complication : No complications 12:18:21 Vital chart was stopped 12:18:24 [facility] Findings: mild to moderate CAD (<70%) 12:18:28 See physician's report for complete and final results. 12:18:30 Report given to [facility]. 12:18:33 Patient transfered to [facility] with Bed. 12:18:35 Procedure ended. 12:18:35 Full Disclosure recording stopped 12:18:38 End room use (Document Last) 12:20:20 End room use (Document Last) 12:20:38 End room use (Document Last) Device Usage Item Name Manufacture Quantity Catalog Hospital Part Current Minimal L ot# / Number Charge Number Stock Stock Serial# Code ACIST Acist 1 40303 166051 444293 401334 20 Syringe Medical (12511) Systems Inc Bag Microtek 1 028234 05951 621062 5 Decanter Medical Inc. () ACIST Acist 1 94621 511001 128697 860042 5 Manifold Medical (98026) Systems Inc ACIST Hand Acist 1 33257 693706 286574 274974 5 Control Medical (12141) Systems Inc Tegaderm 4 3M 1 1626W 497010 517909 189082 5 x 4 (1626W) Medline Medline 1 [id number] 756182 94579 835906 5 Cath Pack ([id number]) DIAGNOSTIC Cardinal 1 EJ9944 150705 48640 073256 30 MultipNeoantigenics 5Fr catheter set (CV5097) SHEATH 5FR Terumo 1 ZQL375 513845 692405 007942 5 Spencer (WGO050) EMERALD Cardinal 1 502-455 547088 959765 413480 5 Guide Wire Health (502-405) MULTIPACK Cardinal 1 666234 5 JL 4.0 5Fr Health catheter MULTIPACK Cardinal 1 002776 5 3DRC 5Fr Health catheter MULTIPACK Cardinal 1 135720 5 Pigtail 5 Health Fr catheter EXOSEAL 5Fr Cardinal 1 EX500 173699 688020 837926 10 (EX500) Health Signature Audit [place] Stage Time Signature Unsigned Intra-Procedure 09/04/2019 Gerri Menezes 12:20:20 PM RT(R) Intra-Procedure 09/04/2019 Violeta Warner 12:20:38 PM RN Intra-Procedure 09/04/2019 Roshan Escobedo 12:21:00 PM En MUÑOZ [id number] [place] [address]
[2019-09-03 22:42] LABS: BASOPHILS 0.9 % (0-2); EOSINOPHILS 3.4 % (0-7); HEMATOCRIT 41.9 % (36.0-48.0); HEMOGLOBIN 13.5 g/dL (12-16); IMMATURE GRANULOCYTES 0.3 % (0-5); LYMPHOCYTES 29.4 % (15-50); MCH 29.4 pg (26.0-34.0); MCHC 32.2 g/dL (31.0-37.0); MCV 91.3 fL (80.0-100.0); MEAN PLATELET VOLUME 10.2 fL (7.4-10.4); MONOCYTES 9.4 % (2-11); NEUTROPHILS 56.6 % (40-80); PLATELET COUNT 293 10x3/uL (130-400); RBC 4.59 10x6/uL (4.00-5.40); RDW 14.4 % (11.5-14.5)
[2019-09-03 22:56] LABS: CALC OSMOLALITY 279 mosm/kg (275-300); CALCIUM 8.4 mg/dL (8.5-10.1); CARBON DIOXIDE 31.6 mmol/L (21.0-32.0); CHLORIDE - SERUM 103 mmol/L (98-107); CREATININE - SERUM 1.2 mg/dL (0.6-1.3); GLUCOSE 106 mg/dL (74-106); POTASSIUM - SERUM 4.2 mmol/L (3.5-5.1); SODIUM 140 mmol/L (136-145); UREA NITROGEN 15 mg/dL (7-18); eGFR NON AFRICAN AMERICAN 47 mL/min (90-120)
[2019-09-03 23:13] LABS: ALBUMIN 3.2 g/dL (3.4-5.0); ALKALINE PHOSPHATASE 86 U/L (30-120); ALT (SGPT) 16 U/L (10-68); BILIRUBIN - TOTAL 0.43 mg/dL (0.2-1.3); PRO BNP 72 pg/mL (0-125); PROTEIN - SERUM 6.6 g/dL (6.4-8.2)
[2019-09-03 23:14] LABS: TROPONIN-I < 0.017 ng/mL (0.000-0.060)
[2019-09-04] VITALS: BP 114/54
[2019-09-04 04:00] VITALS: BP 95/40
[2019-09-04 04:26] VITALS: Ht 152.4 cm; Wt 80.0 kg
[2019-09-04 09:46] VITALS: BP 110/51
--- NOTE | 2019-09-04 09:57 | NUR ---
ECHO COMPLETED. CONSENTS SIGNED FOR [facility]. UP TO SHOWER TO PREP FOR CATH.
[2019-09-04 11:05] LABS: APTT 27.2 SECONDS (22.8-39.4); INR 0.89 (0.85-1.17); PROTIME 12.1 SECONDS (11.6-15.0)
[2019-09-04 11:06] LABS: D-DIMER-QUANTITATIVE 0.9 ug/mLFEU (0.20-0.54)
--- NOTE | 2019-09-04 11:30 | NUR ---
PRE-OPS GIVEN. TO PAIN MANAGEMENT NURSE PRACTITIONER BY BED.
[2019-09-04 11:37] LABS: ANION GAP 9.2 mmol/L (8-16); CALCIUM 8.1 mg/dL (8.5-10.1); CARBON DIOXIDE 29.8 mmol/L (21.0-32.0); CHOL - HDL RATIO 4.2 ratio (2.3-4.1); CREATININE - SERUM 1.1 mg/dL (0.6-1.3); LDL-HDL RATIO 2.4 ratio (1.5-3.5)
[2019-09-04 12:00] VITALS: BP 98/40
--- NOTE | 2019-09-04 12:30 | NUR ---
BACK FROM NANOSCIENCE TECHNICIAN. VS WNL. RIGHT GROIN STABLE WITHOUT BLEEDING OR HEMATOMA NOTED. WILL MONITOR.
[2019-09-04 12:42] LABS: BASOPHILS 0.9 % (0-2); EOSINOPHILS 2.7 % (0-7); HEMATOCRIT 40.8 % (36.0-48.0); HEMOGLOBIN 12.7 g/dL (12-16); IMMATURE GRANULOCYTES 0.2 % (0-5); LYMPHOCYTES 34.7 % (15-50); MCH 29.2 pg (26.0-34.0); MCHC 31.1 g/dL (31.0-37.0); MEAN PLATELET VOLUME 11.3 fL (7.4-10.4); MONOCYTES 8.2 % (2-11); NEUTROPHILS 53.3 % (40-80); PLATELET COUNT 265 10x3/uL (130-400); RBC 4.35 10x6/uL (4.00-5.40); RDW 14.6 % (11.5-14.5); WBC 5.5 10x3/uL (4.8-10.8)
[2019-09-04 12:53] LABS: MCV 93.8 fL (80.0-100.0)
--- NOTE | 2019-09-04 14:07 | NUR ---
BED REST UP. GROIN STABLE.
--- NOTE | 2019-09-04 14:41 | NUR ---
IV AND TELEMETRY DCD. DC PLANS GIVEN. UNDERSTANDING VOICED.
--- NOTE | 2019-09-04 15:01 | NUR ---
ESCORTED TO CAR BY W/C.
--- NOTE | 2019-09-04 16:56 | MORECARE ---
CASE MANAGEMENT DISCHARGE SUMMARY PATIENT: MARITA LADD UNIT: [id number] ADM DATE: 09/03/19 AGE: 68 : 51 SEX: F ROOM/BED: D.1734 AUTHOR: BEBA ALVARES PHYSICIAN: REFERRING PHYSICIAN: SANTOS ALEJANDRO MD DATE OF SERVICE: 09/04/19 Discharge Plan Patient Name: MARITA LADD Facility: [facility]:[place] : 1950 Planned Disposition: Home Anticipated Discharge Date: 09/04/19 Discharge Date: 09/04/2019 Expected LOS: 1 Initial Reviewer: [email or web address] Initial Review Date: 09/04/2019 Generated: 09/04/19 5:56 pm Patient Name: MARITA LADD Page 49508 at 1656 All edits/amendments must be made on the electronic document DICTATION DATE: 09/04/191655 TRANSPORT COMPANY MANAGER: TAYLOR 09/04/191655 RPT#: [id number] DC DATE:09/04/19 STATUS: DIS IN [facility] [address] [place] [address] END OF REPORT
--- NOTE | 2019-09-05 08:26 | OP ---
PATIENT NAME: MARITA LADD MEDICAL RECORD: [id number] :52 LOCATION:D.M2 D.2114 ADMISSION DATE:09/03/19 SURGEON: PHUC MADRIGAL MD DATE OF OPERATION: 09/03/2019 PROCEDURE: Left heart catheterization, selective coronary angiography, right femoral artery approach. CATHETERS: A 5-Tamazight sheath, 5/4 left and right Violeta, 5/4 pig. The procedure was well tolerated. The patient returned to the taylor, sheath removed. Adequate hemostasis was obtained as well as ExoSeal device. FINDINGS: Left ventriculography in 30-degree PEREZ view: Normal wall motion and normal systolic function. CORONARY ANATOMY: LEFT MAIN: Left main is free of disease. LAD: Free of disease in the diagonal system. CIRCUMFLEX: Free disease in the marginal system. RIGHT CORONARY ARTERY: Codominant system, free of disease. IMPRESSION: Normal left ventricular systolic function, normal coronary anatomy. TRANSINT:[id number] Voice Confirmation ID: [id number] DOCUMENT ID: [id number] PHUC MADRIGAL MD at 0826 CC: [id number] DICTATION DATE: 09/04/19 1224 FLOUR MIXER HELPER: 09/04/19 1439 DIS IN 09/04/19 [address] [place] [address]
--- NOTE | 2019-09-05 08:26 | EC ---
PATIENT:MARITA LADD DATE OF SERVICE: 09/03/19 SEX: F MEDICAL RECORD: [id number] DATE OF : 52 LOCATION:D.M2 D.211 AGE OF PATIENT: 68 ADMISSION DATE: 09/03/19 REFERRING PHYSICIAN: INTERPRETING PHYSICIAN: PHUC MADRIGAL MD ECHOCARDIOGRAM REPORT ECHO CHARGES 4 ECHO COMPLETE Date: 09/04/19 CLINICAL DIAGNOSIS: CP, SOB ECHOCARDIOGRAPHIC MEASUREMENTS (adult normal given) AC root (d.<3.7cm) 2.8 cm LV Septum d (<1.2 cm> 0.7 cm Valve Excursion 1.6 cm LV Septum (systole) 1.0 cm Left Atria (s.<4.0cm> 3.9 cm LVPW d(<1.2cm) 1.1 cm RV (d.<2.3cm) 2.7 cm LVPW (sytole) 1.3 cm LV diastole(<5.6CM) 5.1 cm MV E-F(>70mm/sec) cm LV systole 3.5 cm LVOT Diameter 1.8 cm MV exc.(>10mm) cm Est.ejection fraction (50-75%) % DOPPLER: LVIT cm/sec A 102 cm/sec E 97 cm/sec LA cm/sec RVSP 16.9 mmHg LVOT 101 cm/sec AOP1/2T m/s Asc. Ao 170 cm/sec RVOT 76 cm/sec RA cm/sec PA 111 cm/sec AV Gradient Peak 11.5 mmHg AV Mean 6.2 mmHg AV Area 1.5 cm MV Gradient Peak 5.0 mmHg MV Mean 2.2 mmHg MV Area cm COMMENTS: Inspector And Clipper: Ashwini NEFF Hard Metals Engraver Hand: 3 Dr. Hayes TAPE# PACS Pericardial Effusion N DATE OF SERVICE: Adequate 2D, color flow imaging, spectral Doppler and M-mode. No LVH. LV internal dimension is normal. Wall motions is normal. EF is greater than or equal to 55%. Aortic valve is tricuspid. No evidence of stenosis by Doppler interrogation. Left atrium is normal. Mitral valve shows no prolapse. Trace MR. Right-sided chambers are grossly normal. Trace TR. TRANSINT:[id number] Voice Confirmation ID: [id number] DOCUMENT ID: [id number] ECHOCARDIOGRAM REPORT [id number] MARITA LADD PHUC MADRIGAL MD at 0826 CC: [id number] DICTATION DATE: 09/04/19 1507 DIRECTOR OF WORKFORCE DEVELOPMENT: 09/04/19 2148 DIS IN 09/04/19 [id number] [place] [address]
--- NOTE | 2019-09-05 08:26 | CN ---
PATIENT NAME:MARITA LADD MEDICAL RECORD: [id number] : 52 LOCATION:D. D.2114 ADMIT DATE: 09/03/19 ACCOUNT: [id number] CONSULTING PHYSICIAN: PHUC MADRIGAL MD REFERRING PHYSICIAN: SANTOS ALEJANDRO MD DATE OF CONSULTATION: 09/03/2019 HISTORY OF PRESENT ILLNESS: A 68-year-old female with known history of coronary artery disease, status post stenting to the right coronary via Dr. Rocha approximately 6 years ago. She has history of peripheral reflux disease, hypertension, has had intermittent angina controlled with combination of calcium channel blockade as well as nitrates, onset of rest symptomology last night, radiating to the jaw accompanied by shortness of breath. We are asked to see her concerning her cardiovascular status. PAST MEDICAL HISTORY: Includes; 1. History of hypertension. 2. Hyperlipidemia. 3. Coronary artery disease as described above. 4. Peripheral vascular disease. 5. Obstructive pulmonary disease. ALLERGIES: None known. MEDICATIONS: Include Lasix 20 mg p.o. every day, Pelham 10/325 one tablet every 4 hours p.r.n., aspirin 81 every day, Celexa 20 every day, Requip 2 mg p.o. at bedtime, Imdur 30 mg p.o. every day, atorvastatin 10 mg p.o. daily, amlodipine 5 every day, DuoNeb 3 mL q.i.d., Aricept 5 mg at bedtime. SOCIAL HISTORY: Nonsmoker, nondrinker, still works part-time, tries to walk on a regular basis. REVIEW OF SYSTEMS: The patient reports easy bruising but reports no swollen glands. The patient reports no fever, no night sweats, no significant weight gain, no significant weight loss. No significant exercise tolerance. The patient reports no dry eyes, no irritation, no vision change. Patient reports no difficulty hearing and no ear pain. Patient reports no frequent nose bleeds or nose and sinus problems. Patient reports on arm pain on exertion. No shortness of breath while lying down. No history of heart murmur. Patient reports no cough, no wheezing or coughing up blood. Patient reports no abdominal pain, no vomiting. Normal appetite. No diarrhea and not vomiting blood. No nausea and no constipation. Patient reports no incontinence. No difficulty urinating. No hematuria. No increased frequency. Patient reports no muscle aches. No weakness, no arthralgias, no back pain. No swelling of the extremities. Patient reports no abnormal mole, no jaundice, no rashes. Reports no loss of consciousness. No weakness and no numbness. No seizures, dizziness, or headaches. The patient reports no depression, no sleep disturbance, feeling safe in a relationship and no alcohol abuse. Patient reports on fatigue. Reports no runny nose or sinus pressure. No itching, no hives, and no frequent sneezing. PHYSICAL EXAMINATION: GENERAL: Pleasant female in no acute distress. VITAL SIGNS: Blood pressure 95/40, pulse is 69 and regular. HEENT: Normocephalic, atraumatic. CONSULT REPORT [id number] MARITA LADD NECK: No JVD or bruit. HEART: A II/ systolic ejection murmur. LUNGS: Good air excursion. ABDOMEN: Soft, nontender. EXTREMITIES: Pulses 2+ with no edema. DIAGNOSTIC DATA: EKG shows nonspecific ST-T changes. IMPRESSION: Progressive angina, now with rest symptomatology despite nitrates and calcium channel yuriy. PLAN: For angiography, intervention based on the above. TRANSINT:[id number] Voice Confirmation ID: [id number] DOCUMENT ID: [id number] PHUC MADRIGAL MD at 0826 CC: [id number] DICTATION DATE: 09/04/19839 HAND SEWER SHOES: 09/04/19 1106 DIS IN 09/04/19 [facility] [address] [place] [address]
== END 2019-09-04 15:01 | disposition home or self-care (01) ==
LOC: D.ER 22:19 → D.M2 22:57 → OBSVTIME 22:57 → D.M2 09-04 15:01
PROVIDERS: Family Medicine; Internal Medicine Interventional Cardiology; ADMIT Family Medicine; ATTEND Family Medicine
DX: I25.110 Atherosclerotic heart disease of native coronary artery with unstable angina pectoris (principal); I10 Essential (primary) hypertension; E78.5 Hyperlipidemia, unspecified; J44.9 Chronic obstructive pulmonary disease, unspecified; J45.909 Unspecified asthma, uncomplicated; J96.11 Chronic respiratory failure with hypoxia; M19.90 Unspecified osteoarthritis, unspecified site; F17.203 Nicotine dependence unspecified, with withdrawal; G25.81 Restless legs syndrome; F41.8 Other specified anxiety disorders; F03.90 Unspecified dementia, unspecified severity, without behavioral disturbance, psychotic disturbance, mood disturbance, and anxiety; K21.9 Gastro-esophageal reflux disease without esophagitis

== ENCOUNTER 2019-09-23 16:00 | Outpatient (CLI) | payer OTHER, MEDICARE | END 2019-09-23 16:01 | disposition home or self-care (01) | LOC: D.MAMMO 16:00 | PROVIDERS: ATTEND Family Medicine | DX: Z12.31 Encounter for screening mammogram for malignant neoplasm of breast (principal) ==

== ENCOUNTER → 2019-10-31 14:10 | Outpatient (CLI) | payer OTHER, MEDICARE ==
--- NOTE | 2019-10-31 15:21 | NUR ---
TIME OUT PERFORMED AT 1520 ON thursday OCTOBER 31, 2019 PERTAINING TO PATIENT,MARITA LADD, BIRTHDATE OF 1950 HAVING AND CONSENTING TO A LEFT SHOULDER ARTHROGRAM TO BE PERFORMED BY DR. HUGHES.
== END | disposition home or self-care (01) ==
LOC: D.RAD 14:10
PROVIDERS: ATTEND Clinical Nurse Specialist Family Health
DX: M25.512 Pain in left shoulder (principal)

== ENCOUNTER 2019-11-17 06:55 | Inpatient (IN) | payer OTHER, MEDICARE ==
[2019-11-12 16:10] LABS: BASOPHILS 1.1 % (0-2); EOSINOPHILS 2.6 % (0-7); HEMATOCRIT 43.3 % (36.0-48.0); IMMATURE GRANULOCYTES 0.1 % (0-5); LYMPHOCYTES 29.2 % (15-50); MCH 29.5 pg (26.0-34.0); MCHC 32.3 g/dL (31.0-37.0); MCV 91.2 fL (80.0-100.0); MEAN PLATELET VOLUME 10.5 fL (7.4-10.4); MONOCYTES 7.3 % (2-11); NEUTROPHILS 59.7 % (40-80); RBC 4.75 10x6/uL (4.00-5.40); RDW 14.5 % (11.5-14.5); WBC 7.4 10x3/uL (4.8-10.8)
[2019-11-12 16:24] LABS: BILIRUBIN NEGATIVE (NEGATIVE); KETONE NEGATIVE (NEGATIVE); NITRITE NEGATIVE (NEGATIVE); UROBILINOGEN NORMAL (NORMAL)
[2019-11-12 16:25] LABS: PLATELET COUNT 333 10x3/uL (130-400)
[2019-11-12 16:26] LABS: APTT 26.1 SECONDS (22.8-39.4); INR 0.95 (0.85-1.17); PROTIME 12.7 SECONDS (11.6-15.0)
[2019-11-12 16:43] LABS: ANION GAP 9.8 mmol/L (8-16); CALCIUM 9.1 mg/dL (8.5-10.1); CARBON DIOXIDE 32.1 mmol/L (21.0-32.0); CREATININE - SERUM 1.2 mg/dL (0.6-1.3); POTASSIUM - SERUM 3.9 mmol/L (3.5-5.1)
[~2019-11-17] VITALS: Ht 157.5 cm; Wt 79.5 kg
[2019-11-17] VITALS (7 sets, daily range): BP systolic 96–122; BP diastolic 48–67; BMI 32.2
[~2019-11-17 06:55] MED LIST changes: +ASCORBIC ACID500 MG PO; +VITAMIN B-121000 MCG PO
--- NOTE | 2019-11-17 16:09 | NUR ---
THROUGH TRAFFIC KEPT TO A MINIMUM. HIBACLENS AND ALCOHOL USED TO CLEAN BEFORE PREPPING. STERILE GOWNED AND GLOVED TO PREP WITH CHLORAPREP.
--- NOTE | 2019-11-17 20:37 | NUR ---
PATIENT REPORTS DECREASE IN PAIN. STATES PAIN MEDICATION WAS EFFECTIVE
[2019-11-18] VITALS: BP 94/48
[2019-11-18 04:00] VITALS: BP 96/63
--- NOTE | 2019-11-18 06:18 | NUR ---
PATIENT COMPLAINING OF LEFT SHOULDER PAIN. REQUESTING PAIN MEDICINE. ADMINISTERED PAIN MEDICINE PER ORDER. DENIES FURTHER NEEDS AT THIS TIME. CALL LIGHT CLOSE. CPOC.
[2019-11-18 06:56] LABS: HEMATOCRIT 30.7 % (36.0-48.0); HEMOGLOBIN 9.2 g/dL (12-16); MCV 93.3 fL (80.0-100.0); MEAN PLATELET VOLUME 10.7 fL (7.4-10.4); RBC 3.29 10x6/uL (4.00-5.40); RDW 14.3 % (11.5-14.5); WBC 8.8 10x3/uL (4.8-10.8)
--- NOTE | 2019-11-18 07:15 | NUR ---
RECEIVED BEDSIDE REPORT. PT A&O X4, SITTING UP IN BED, WATCHING TV. DENIES PAIN OR NEEDS AT THIS TIME. PIV IN R WRIST, PATENT AND INFUSING D5 1/2 NS @ 100. O2 VIA NC @ 3L. LEFT SHOULDER IN SLING, DRSG C/D/I OVER INCISION SITE. PT HAS UPPER DENTURES AT BEDSIDE. EDUCATED PT ON CL AND NEEDS. BED LOW, CL IN REACH. WILL CONTINUE TO MONITOR.
[2019-11-18 08:00] VITALS: BP 111/59
[2019-11-18] MEDS ORDERED: PERCOCET 10-321 EAC1 PO (08:36)
--- NOTE | 2019-11-18 09:17 | MORECARE ---
CASE MANAGEMENT DISCHARGE SUMMARY PATIENT: MARITA LADD UNIT: [id number] ADM DATE: 11/17/19 AGE: 69 : 51 SEX: F ROOM/BED: D.1210 AUTHOR: DIA,DOC PHYSICIAN: REFERRING PHYSICIAN: JERRICA CLEMENT MD DATE OF SERVICE: 11/18/19 Discharge Plan Patient Name: MARITA LADD Facility: [facility]:[place] : 1950 Planned Disposition: Home Anticipated Discharge Date: 11/18/19 Discharge Date: Expected LOS: 1 Initial Reviewer: [id number] Initial Review Date: 11/17/2019 Generated: 11/18/19 10:16 am DCP- Discharge Planning Updated by [email or web address]: Danielle Cesar on 11/18/19 8:[address] CM met with patient to discuss initial discharge planning. Patient is in agreement to proceed with the assessment. Patient reports that she lives at home alone, independently. Patient is alert/oriented. PCP: Dr. Stuart. Pharmacy: [address] Patient states she has been able to obtain all of her prescribed medications. HHS: None. DME: Grab bars, shower chair. Patient gives permission to speak with family members, daughter. Emergency contact: Matthew Harris, daughter ([phone]).Patient states her daughter lives next door to patient and will assist with bathing, cooking, house work. 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 CM discussed the availability of HH, Rehab, SNF, OP Therapy, DME services. Patient denies the need for additional services at this time and feels safe returning to previous environment. Patient denies hospitalization within the past 30 days. 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 Transportation at time of discharge: Daughter, Matthew. CM will assist PRN with DC needs/plans. DCPIA - Discharge Planning Initial Assessment Updated by [id number]: Danielle Cesar on 11/18/19 9:13 am * Is the patient Alert and Oriented? Yes * PCP Dr. Stuart * Pharmacy [address] * Preadmission Environment Home Alone * ADLs Independent * Equipment Shower Chair * Other Equipment NA * List name and contact numbers for known caregivers / representatives who currently or will assist patient after discharge: Matthew Harris [phone] (daughter) * Verbal permission to speak to the caregivers and representatives has been obtained from the patient. Yes * Community resources currently utilized None * Please name any agencies selected above. NA * Additional services required to return to the preadmission environment? No * Can the patient safely return to the preadmission environment? Yes * Has this patient been hospitalized within the prior 30 days at any hospital? No Patient Name: MARITA LADD Page [phone] at 0917 All edits/amendments must be made on the electronic document DICTATION DATE: 11/18/19915 TRIBAL JUDGE: TAYLOR 11/18/19915 RPT#: [id number] DC DATE: STATUS: ADM IN [facility] [address] [place] [address] END OF REPORT
[2019-11-18 10:12] VITALS: BP 110/59; Ht 157.5 cm; Wt 79.5 kg
--- NOTE | 2019-11-18 11:30 | NUR ---
EDUCATED PT ON DISCHARGE INSTRUCTIONS, MEDICATIONS, FOLLOW UP APPOINTMENT AND ACTIVITY TOLERATED. PT VERBALIZED UNDERSTANDING AND SIGNED PAPERWORK. ESCORTED PT TO FRONT ENTRANCE VIA WHEELCHAIR.
--- NOTE | 2019-11-18 11:44 | MORECARE ---
CASE MANAGEMENT DISCHARGE SUMMARY PATIENT: MARITA LADD UNIT: [id number] ADM DATE: 11/17/19 AGE: 69 : 51 SEX: F ROOM/BED: D.1210 AUTHOR: DIA,DOC PHYSICIAN: REFERRING PHYSICIAN: JERRICA CLEMENT MD DATE OF SERVICE: 11/18/19 Discharge Plan Patient Name: MARITA LADD Facility: [facility]:[place] : 1950 Planned Disposition: Home Anticipated Discharge Date: 11/18/19 Discharge Date: 11/18/2019 Expected LOS: 1 Initial Reviewer: [email or web address] Initial Review Date: 11/17/2019 Generated: 11/18/19 12:44 pm DCP- Discharge Planning Updated by [id number]: Danielle Cesar on 11/18/19 8:[address] CM met with patient to discuss initial discharge planning. Patient is in agreement to proceed with the assessment. Patient reports that she lives at home alone, independently. Patient is alert/oriented. PCP: Dr. Stuart. Pharmacy: [address] Patient states she has been able to obtain all of her prescribed medications. HHS: None. DME: Grab bars, shower chair. Patient gives permission to speak with family members, daughter. Emergency contact: Matthew Harris, daughter ([phone]).Patient states her daughter lives next door to patient and will assist with bathing, cooking, house work. 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 CM discussed the availability of HH, Rehab, SNF, OP Therapy, DME services. Patient denies the need for additional services at this time and feels safe returning to previous environment. Patient denies hospitalization within the past 30 days. 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 Transportation at time of discharge: Daughter, Matthew. CM will assist PRN with DC needs/plans. DCPIA - Discharge Planning Initial Assessment Updated by [email or web address]: Danielle Cesar on 11/18/19 9:13 am * Is the patient Alert and Oriented? Yes * PCP Dr. Stuart * Pharmacy [address] * Preadmission Environment Home Alone * ADLs Independent * Equipment Shower Chair * Other Equipment NA * List name and contact numbers for known caregivers / representatives who currently or will assist patient after discharge: Matthew Harris [phone] (daughter) * Verbal permission to speak to the caregivers and representatives has been obtained from the patient. Yes * Community resources currently utilized None * Please name any agencies selected above. NA * Additional services required to return to the preadmission environment? No * Can the patient safely return to the preadmission environment? Yes * Has this patient been hospitalized within the prior 30 days at any hospital? No Last DP export: 11/18/19 8:17 a Patient Name: MARITA LADD Page [phone] at 1144 All edits/amendments must be made on the electronic document DICTATION DATE: 11/18/19 1144 POSTDOCTORAL SCHOLAR: TAYLOR 11/18/19 1144 RPT#: [id number] DC DATE:11/18/19 STATUS: DIS IN [facility] [address] [place] [address] END OF REPORT
--- NOTE | 2019-11-18 11:52 | MORECARE ---
CASE MANAGEMENT DISCHARGE SUMMARY PATIENT: MARITA LADD UNIT: [id number] ADM DATE: 11/17/19 AGE: 69 : 51 SEX: F ROOM/BED: D.1210 AUTHOR: DIA,DOC PHYSICIAN: REFERRING PHYSICIAN: JERRICA CLEMENT MD DATE OF SERVICE: 11/18/19 Discharge Plan Patient Name: MARITA LADD Facility: [facility]:[place] : 1950 Planned Disposition: Home Anticipated Discharge Date: 11/18/19 Discharge Date: 11/18/2019 Expected LOS: 1 Initial Reviewer: [email or web address] Initial Review Date: 11/17/2019 Generated: 11/18/19 12:51 pm DCP- Discharge Planning Updated by [email or web address]: Danielle Cesar on 11/18/19 8:[address] CM met with patient to discuss initial discharge planning. Patient is in agreement to proceed with the assessment. Patient reports that she lives at home alone, independently. Patient is alert/oriented. PCP: Dr. Stuart. Pharmacy: [address] Patient states she has been able to obtain all of her prescribed medications. HHS: None. DME: Grab bars, shower chair. Patient gives permission to speak with family members, daughter. Emergency contact: Matthew Harris, daughter ([phone]).Patient states her daughter lives next door to patient and will assist with bathing, cooking, house work. Patient is Independent with all ADL's, medication management MANAGER GENERAL. CM discussed the availability of HH, Rehab, SNF, OP Therapy, DME services. Patient denies the need for additional services at this time and feels safe returning to previous environment. Patient denies hospitalization within the past 30 days. Patient denies the use of community resources MANAGER GENERAL. Transportation at time of discharge: Daughter, Matthew. CM will assist PRN with DC needs/plans. DCPIA - Discharge Planning Initial Assessment Updated by [email or web address]: Danielle Cesar on 11/18/19 9:13 am * Is the patient Alert and Oriented? Yes * PCP Dr. Stuart * Pharmacy [address] * Preadmission Environment Home Alone * ADLs Independent * Equipment Shower Chair * Other Equipment NA * List name and contact numbers for known caregivers / representatives who currently or will assist patient after discharge: Matthew Harris [phone] (daughter) * Verbal permission to speak to the caregivers and representatives has been obtained from the patient. Yes * Community resources currently utilized None * Please name any agencies selected above. NA * Additional services required to return to the preadmission environment? No * Can the patient safely return to the preadmission environment? Yes * Has this patient been hospitalized within the prior 30 days at any hospital? No Last DP export: 11/18/19 10:44 a Patient Name: MARITA LADD Page [phone] at 1152 All edits/amendments must be made on the electronic document DICTATION DATE: 11/18/19 1152 DIRECTOR SPORTS: TAYLOR 11/18/19 1152 RPT#: [id number] DC DATE:11/18/19 STATUS: DIS IN [facility] [address] [place] [address] END OF REPORT
--- NOTE | 2019-11-18 15:01 | MORECARE ---
CASE MANAGEMENT DISCHARGE SUMMARY PATIENT: MARITA LADD UNIT: [id number] ADM DATE: 11/17/19 AGE: 69 : 51 SEX: F ROOM/BED: D.1210 AUTHOR: DIA,DOC PHYSICIAN: REFERRING PHYSICIAN: JERRICA CLEMENT MD DATE OF SERVICE: 11/18/19 Discharge Plan Patient Name: MARITA LADD Facility: [facility]:[place] : 1950 Planned Disposition: Home Anticipated Discharge Date: 11/18/19 Discharge Date: 11/18/2019 Expected LOS: 1 Initial Reviewer: [email or web address] Initial Review Date: 11/17/2019 Generated: 11/18/19 4:00 pm DCP- Discharge Planning Updated by [email or web address]: Danielle Cesar on 11/18/19 8:[address] CM met with patient to discuss initial discharge planning. Patient is in agreement to proceed with the assessment. Patient reports that she lives at home alone, independently. Patient is alert/oriented. PCP: Dr. Stuart. Pharmacy: [address] Patient states she has been able to obtain all of her prescribed medications. HHS: None. DME: Grab bars, shower chair. Patient gives permission to speak with family members, daughter. Emergency contact: Matthew aHrris, daughter ([phone]).Patient states her daughter lives next door to patient and will assist with bathing, cooking, house work. 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 CM discussed the availability of HH, Rehab, SNF, OP Therapy, DME services. Patient denies the need for additional services at this time and feels safe returning to previous environment. Patient denies hospitalization within the past 30 days. 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 Transportation at time of discharge: Daughter, Matthew. CM will assist PRN with DC needs/plans. DCPIA - Discharge Planning Initial Assessment Updated by [email or web address]: Danielle Cesar on 11/18/19 9:13 am * Is the patient Alert and Oriented? Yes * PCP Dr. Stuart * Pharmacy [address] * Preadmission Environment Home Alone * ADLs Independent * Equipment Shower Chair * Other Equipment NA * List name and contact numbers for known caregivers / representatives who currently or will assist patient after discharge: Matthew Harris [phone] (daughter) * Verbal permission to speak to the caregivers and representatives has been obtained from the patient. Yes * Community resources currently utilized None * Please name any agencies selected above. NA * Additional services required to return to the preadmission environment? No * Can the patient safely return to the preadmission environment? Yes * Has this patient been hospitalized within the prior 30 days at any hospital? No Last DP export: 11/18/19 10:52 a Patient Name: MARITA LADD Page [phone] at 1501 All edits/amendments must be made on the electronic document DICTATION DATE: 11/18/19 1501 TECHNOLOGY DIRECTOR: TAYLOR 11/18/19 1501 RPT#: [id number] DC DATE:11/18/19 STATUS: DIS IN [facility] [address] [place] [address] END OF REPORT
--- NOTE | 2019-11-19 13:49 | OP ---
PATIENT NAME: MARITA LADD MEDICAL RECORD: [id number] :52 LOCATION:D. D.1210 ADMISSION DATE:11/17/19 SURGEON: JERRICA CLEMENT MD DATE OF OPERATION: 11/17/2019 PREOPERATIVE DIAGNOSIS: Rotator cuff tear arthropathy, status post total shoulder arthroplasty with pain and weakness. POSTOPERATIVE DIAGNOSES: 1. Rotator cuff tear arthropathy, status post total shoulder arthroplasty with pain and weakness. 2. Intraoperative humeral shaft fracture. PROCEDURE: 1. Revision total shoulder arthroplasty to reverse total shoulder arthroplasty. 2. ORIF intraoperative humeral shaft fracture. SURGEON: Jerrica Clement MD ANESTHESIA: General. SERVICE ORDER DISPATCHER: JOSHUA Arteaga. SUMMARY OF PATHOLOGIC FINDINGS: Upon entering the patient's total shoulder, she had clearly had rotator cuff tearing anteriorly and anteriorly superiorly for quite some time when she presented. At the time of surgery, her subscapularis was completely torn and deficient as was the anterior portion of the supraspinatus tendon with retraction to beyond the glenoid. At this point, the decision was made to proceed with a stabilized reverse total shoulder. The patient's primary total shoulder arthroplasty was removed with some degree of trepidation; however, it was eventually removed in its entirety as was the glenoid. Preparations were then made for placing the baseplate for the reverse total shoulder from Arthrex. Serial and sequential reaming was done followed by placement of the baseplate followed by capture of the peripheral screws as well as the central 25 mm screw. This resulted in excellent seating of the baseplate and then the 36 [address] was [address] into [address], tamped, screwed, and tamped for good fixation. Next, attention was turned to the proximal humerus. Serial and sequential reaming and broaching were done and trials were undertaken and as a part of trialing, the patient's humeral shaft was noted to distally move independently, proximally. At this point, it was felt that she had likely sustained intraoperative fracture and indeed she did. Dissection was carried down further for direct visualization of the fracture. Two 2-6 Dall-Miles cables were placed around the fracture, which went more than 2 cortical lengths past the fracture. The perioperative fracture then being fixed with cabling around the stemmed implant, attention was then re-turned to the proximal aspect for a trial. It was felt that a 36 +9 was going to be the most appropriate to give this patient stability. The 36 C spacer was screwed into place on the proximal aspect of the Arthrex stem followed by placement of the 36 +3 C constrained was also put into place. This was then reduced and fluoroscopic radiographs were taken of both the fracture as well as the reduced implant and all appeared to be in excellent overall condition. At this point, the wound was copiously irrigated. A gram of vancomycin and a gram of tobramycin was placed and the wound was then closed by JOSHUA Arteaga. Following this, the patient was awakened. She was taken to recovery room in stable condition. All final needle and sponge counts were correct. OPERATIVE REPORT [id number] ALISJIMMIEMARITA TRANSINT:[id number] Voice Confirmation ID: [id number] DOCUMENT ID: [id number] JERRICA CLEMENT MD at 1349 CC: [id number] DICTATION DATE: 11/17/19 1749 LOAN REVIEW MANAGER: 11/18/19 0320 DIS IN 11/18/19 [address] [place] [address]
== END 2019-11-18 11:31 | disposition home or self-care (01) | DRG 483 ==
LOC: D.OPS 06:55 → D.PAN 08:45 → D.OPS 11:30 → D.PAN 11:30 → D.M3 18:00 → D.OPS 19:21 → D.M3 19:21
PROVIDERS: ADMIT Orthopaedic Surgery; ATTEND Orthopaedic Surgery
PROC: 0RPK0JZ Removal of Synthetic Substitute from Left Shoulder Joint, Open Approach (ICD-10-PCS; 2019-11-17)
PROC: 0PSG04Z Reposition Left Humeral Shaft with Internal Fixation Device, Open Approach (ICD-10-PCS; 2019-11-17)
PROC: 0RRK00Z Replacement of Left Shoulder Joint with Reverse Ball and Socket Synthetic Substitute, Open Approach (ICD-10-PCS; principal; 2019-11-17 08:45)
DX: T84.84XA Pain due to internal orthopedic prosthetic devices, implants and grafts, initial encounter (principal); D62 Acute posthemorrhagic anemia; X58.XXXA Exposure to other specified factors, initial encounter; M96.622 Fracture of humerus following insertion of orthopedic implant, joint prosthesis, or bone plate, left arm; Y83.9 Surgical procedure, unspecified as the cause of abnormal reaction of the patient, or of later complication, without mention of misadventure at the time of the procedure; J44.9 Chronic obstructive pulmonary disease, unspecified; I25.10 Atherosclerotic heart disease of native coronary artery without angina pectoris; I10 Essential (primary) hypertension

== ENCOUNTER 2019-11-29 10:32 | Inpatient (IN) | payer OTHER, MEDICARE ==
[~2019-11-29] VITALS: Ht 157.5 cm; Wt 74.1 kg
[~2019-11-29 10:32] MED LIST changes: +PERCOCET 10-321 EAC1 PO
[2019-11-29 11:09] LABS: BASOPHILS 0.4 % (0-2); EOSINOPHILS 2.5 % (0-7); HEMATOCRIT 35.5 % (36.0-48.0); HEMOGLOBIN 11.3 g/dL (12-16); IMMATURE GRANULOCYTES 0.6 % (0-5); LYMPHOCYTES 17.8 % (15-50); MCHC 31.8 g/dL (31.0-37.0); MEAN PLATELET VOLUME 9.9 fL (7.4-10.4); MONOCYTES 6.2 % (2-11); NEUTROPHILS 72.5 % (40-80); RDW 14.5 % (11.5-14.5); WBC 6.9 10x3/uL (4.8-10.8)
[2019-11-29 11:13] LABS: PLATELET COUNT 585 10x3/uL (130-400)
[2019-11-29 11:15] LABS: INR 1.03 (0.85-1.17); PROTIME 13.5 SECONDS (11.6-15.0)
[2019-11-29 11:16] LABS: APTT 26.1 SECONDS (22.8-39.4)
[2019-11-29 11:18] LABS: ANION GAP 8.6 mmol/L (8-16); CALCIUM 9.1 mg/dL (8.5-10.1); CARBON DIOXIDE 28.1 mmol/L (21.0-32.0); CREATININE - SERUM 1.4 mg/dL (0.6-1.3); POTASSIUM - SERUM 3.7 mmol/L (3.5-5.1)
[2019-11-29 11:22] LABS: ALBUMIN 2.9 g/dL (3.4-5.0); BILIRUBIN - TOTAL 0.37 mg/dL (0.2-1.3); PROTEIN - SERUM 7.2 g/dL (6.4-8.2)
--- NOTE | 2019-11-29 13:15 | NUR ---
UNIVERSAL COVID COLLECTED FOR ADMISSION AND WALKED TO LAB.
[2019-11-29 13:47] LABS: ERYTHROCYTE SEDIMENTATION RATE 94 mm/hr (0-30)
--- NOTE | 2019-11-29 14:35 | NUR ---
RECEIVED PATIENT FROM ER, ALERT AND ORIENTED. IV TO RIGHT FOREARM, SL. SITE PATENT WITHOUT REDNESS OR SWELLING. ONLY C/O PAIN WHEN MOVING LEFT ARM/SHOULDER. BRUISING TO LEFT BREAST AND LEFT ARM. NO S/S OF ACUTE DISTRESS NOTED. GOWN PUT ON PATIENT. HIBICLEANSE DONE. EKG IN CHART. VITALS STABLE. CONSENTS SIGNED. DENIES ANY NEEDS AT THIS TIME. PATIENT TORRES MARTINEZ, HEARING AID IN BILATERAL EARS. CALL LIGHT IN REACH. WILL CONTINUE TO MONITOR.
--- NOTE | 2019-11-29 15:54 | NUR ---
I have reviewed this patient and I concur with the Shift Assessment completed by the Licensed Practical Nurse today this shift.
[2019-11-29 18:38] VITALS: BP 116/75
--- NOTE | 2019-11-29 18:55 | NUR ---
RECEIVED PATIENT FROM RECOVERY. ALERT AND ORIENTED. NO C/O PAIN. NO S/S OF ACUTE DISTRESS NOTED. VITALS STABLE. UNABLE TO PULL ANTIBIOTICS FROM [facility] AT THIS TIME. CALLED AFTER HOURS PHARMACY TO HAVE THE PHARMACY VERIFY MEDS.
--- NOTE | 2019-11-29 20:00 | NUR ---
ALERT RESTING IN BED, DENIES PAIN OR NEEDS AT THSI TIME, CALL LIGHT IN REACH SEE SHIFT ASSESSMENT, HEMIVAC DRAIN IN USE TO LEFT SHOULDER DRESSING C/D/I
[2019-11-29 21:18] VITALS: BP 106/43
[2019-11-30] VITALS (7 sets, daily range): BP systolic 98–119; BP diastolic 43–55; BMI 30.8
[2019-11-30 06:15] LABS: BASOPHILS 0.3 % (0-2); EOSINOPHILS 0.1 % (0-7); HEMATOCRIT 30.3 % (36.0-48.0); HEMOGLOBIN 9.5 g/dL (12-16); IMMATURE GRANULOCYTES 0.4 % (0-5); MCH 28.3 pg (26.0-34.0); MCHC 31.4 g/dL (31.0-37.0); MCV 90.2 fL (80.0-100.0); MONOCYTES 4.6 % (2-11); NEUTROPHILS 86.6 % (40-80); PLATELET COUNT 508 10x3/uL (130-400); RBC 3.36 10x6/uL (4.00-5.40); RDW 13.9 % (11.5-14.5); WBC 9.3 10x3/uL (4.8-10.8)
[2019-11-30 06:46] LABS: ALBUMIN 2.4 g/dL (3.4-5.0); ANION GAP 12.2 mmol/L (8-16); BILIRUBIN - TOTAL 0.26 mg/dL (0.2-1.3); CALCIUM 8.6 mg/dL (8.5-10.1); CARBON DIOXIDE 26.1 mmol/L (21.0-32.0); CREATININE - SERUM 1.6 mg/dL (0.6-1.3); MAGNESIUM - SERUM 2.2 mg/dL (1.8-2.4); POTASSIUM - SERUM 4.3 mmol/L (3.5-5.1); PROTEIN - SERUM 6.3 g/dL (6.4-8.2)
--- NOTE | 2019-11-30 07:36 | OP ---
PATIENT NAME: MARITA LADD MEDICAL RECORD: [id number] :52 LOCATION:D.MS [id number] ADMISSION DATE:11/29/19 SURGEON: ORLANDO FOWLER DO DATE OF OPERATION: 11/29/2019 PROCEDURE PERFORMED: Left hematoma evacuation with I&D of the left shoulder. PREOPERATIVE DIAGNOSIS: Hematoma, left shoulder. POSTOPERATIVE DIAGNOSIS: Hematoma, left shoulder. INDICATIONS: Ms. Ladd is a 69-year-old female who had a revision left shoulder from an anatomic shoulder to reverse total shoulder approximately 2 weeks ago and is doing somewhat well. During that procedure, she had fractured her humerus and a reverse total shoulder was put in. She had a hematoma develop and had not drained it, but it was quite large. She also had a median nerve palsy since the surgery, AIN palsy. She presented to the ER today as it was getting larger and is quite painful. She did not have any changes in her motor of her median nerve or AIN, but she was concerned. She did not have any drainage. I informed her that since it is getting bigger we would probably need to wash it out and culture it. Her ESR and CRP were elevated, but her white count was not. We will wash out and take cultures and see what happens from there and she would be at risk for further surgery, need for removal of implants, and further infection and signed the consent. SURGEON: Orlando Fowler DO DESCRIPTION OF PROCEDURE: The patient was taken to the operative suite, laid in supine position, given general anesthetic, and LMA was placed. She was then given 2 g of Ancef preoperatively. The left upper extremity was then prepped and draped in sterile fashion. Time-out was performed and everyone was in agreement as to the correct side, site, patient, and procedure. I began by making an incision over the prior incision and a large eaton of sanguineous fluid came out. This shoulder was then cultured. I then irrigated the wound with 6 L of normal saline and debrided it with curettes any devitalized tissue. I did not see any elliott purulence out of the wound and the shoulder was not dislocated. After irrigating and curetting, I then closed the skin with Isabelle Molina, certified surgical assistant sales director student, with 2-0 Vicryl in inverted interrupted fashion. I then ran 4-0 Monocryl in a subcuticular fashion, put Prineo glue on the shoulder. I then prior to closing put a 1/8-inch drain in the site with a Hemovac. She was then dressed with Telfa and Tegaderm, awakened, taken to recovery in stable condition. BLOOD LOSS: Minimal. COMPLICATIONS: None. NTS:[id number] Voice Confirmation ID: [id number] DOCUMENT ID: [id number] OPERATIVE REPORT [id number] MARITA LADD MICHAEL D, DO at 0736 CC: [id number] DICTATION DATE: 11/29/191811 CONCRETE PUMP OPERATOR HELPER: 11/29/192020 ADM IN [facility] [address] [place] [address]
--- NOTE | 2019-11-30 07:50 | NUR ---
AWAKE AND ALERT. ORIENTED X3. LUNGS ARE CLEAR BILATERALLY, NO COUGH NOTED. SKIN IS INTACT WITHOUT REDNESS EXCEPT INCISION TO LEFT SHOULDER WHICH HAS A DRY INTACT DRESSING IN PLACE AND DAVOL WITH SCANT OUTPUT. IV TO RIGHT FOREARM IS PATENT WITHOUT REDNESS AT INSERTION SITE. UP TO BR WITH SBA. VOIDED CLEAR YELLOW URINE WITHOUT DIFFICULTY. DENIES NEEDS.
--- NOTE | 2019-11-30 09:00 | NUR ---
ATE MOST OF BREAKFAST. AMBULATED IN HALLWAY PER SELF. DENIES NEEDS. TOOK AM MEDS WITHOUT DIFFICULTY.
--- NOTE | 2019-11-30 11:00 | NUR ---
RESTING QUIETLY IN BED. DENIES NEEDS.
--- NOTE | 2019-11-30 12:30 | NUR ---
LUNCH SERVED IN ROOM. ATE ALL OF TRAY. UP AMBULATED IN HALLWAY PER SELF. DENIES NEEDS.
--- NOTE | 2019-11-30 18:48 | NUR ---
ATE ALL OF SUPPER TRAY. DENIES NEEDS. NO CHANGES NOTED.
--- NOTE | 2019-11-30 19:39 | NUR ---
PATIENT RESTING IN BED WITH NO S/S OF DISTRESS AT THIS TIME. PATIENT DENIES NEEDS AT THIS TIME. BED IN LOWEST POSITION AND CALL LIGHT WITHIN REACH. ENCOURAGED THE PATIENT TO CALL IF SHE HAS NEEDS. WILL CONTINUE TO MONITOR.
--- NOTE | 2019-11-30 21:04 | NUR ---
ADMINISTERED MEDS PER ORDERS. PATIENT DENIES OTHER NEEDS. WILL CONTINUE TO MONITOR.
[2019-12-01 01:34] VITALS: BP 114/41
[2019-12-01 05:13] VITALS: BP 112/55
--- NOTE | 2019-12-01 05:38 | NUR ---
NOTIFIED DR. FOWLER THAT THE SWELLING TO THE PATIENT'S LEFT ARM HAS INCREASED OVERNIGHT.
[2019-12-01 06:08] LABS: BASOPHILS 0.7 % (0-2); EOSINOPHILS 2.6 % (0-7); HEMATOCRIT 29.4 % (36.0-48.0); HEMOGLOBIN 9.2 g/dL (12-16); IMMATURE GRANULOCYTES 0.4 % (0-5); LYMPHOCYTES 21.3 % (15-50); MCH 28.7 pg (26.0-34.0); MCHC 31.3 g/dL (31.0-37.0); MCV 91.6 fL (80.0-100.0); MONOCYTES 6.5 % (2-11); NEUTROPHILS 68.5 % (40-80); PLATELET COUNT 506 10x3/uL (130-400); RBC 3.21 10x6/uL (4.00-5.40); RDW 14.6 % (11.5-14.5); WBC 8.5 10x3/uL (4.8-10.8)
[2019-12-01 06:42] LABS: ALBUMIN 2.4 g/dL (3.4-5.0); ANION GAP 10.8 mmol/L (8-16); BILIRUBIN - TOTAL 0.25 mg/dL (0.2-1.3); CALCIUM 8.4 mg/dL (8.5-10.1); CARBON DIOXIDE 29.2 mmol/L (21.0-32.0); CREATININE - SERUM 1.4 mg/dL (0.6-1.3); MAGNESIUM - SERUM 2.2 mg/dL (1.8-2.4); PROTEIN - SERUM 6.1 g/dL (6.4-8.2)
[2019-12-01 07:59] VITALS: BP 137/46
--- NOTE | 2019-12-01 11:11 | NUR ---
REMOVED DRAIN FROM LEFT SHOULDER. TOLERATED WELL. GAUZE AND TEGADERM PLACED. NO ACUTE DISTRESS NOTED. DENIES PAIN AT THIS TIME. NEEDS ANTICIPATED AND MET. WILL CONTINUE TO MONITOR
[2019-12-01 11:49] VITALS: BP 118/64
[2019-12-01 14:53] VITALS: Ht 157.5 cm; Wt 74.1 kg
[2019-12-01 16:49] VITALS: BP 106/54
--- NOTE | 2019-12-01 19:25 | NUR ---
PATIENT RESTING IN BED WITH NO S/S OF DISTRESS. GUEST AT BEDSIDE. BED IN LOWEST POSITION AND CALL LIGHT WITHIN REACH. ENCOURAGED THE PATIENT TO CALL IF SHE HAS NEEDS. WILL CONTINUE TO MONITOR.
[2019-12-01 20:00] VITALS: BP 108/50
[2019-12-02 04:00] VITALS: BP 104/58
[2019-12-02 06:25] LABS: BASOPHILS 0.6 % (0-2); EOSINOPHILS 3.4 % (0-7); HEMATOCRIT 31.5 % (36.0-48.0); HEMOGLOBIN 9.8 g/dL (12-16); IMMATURE GRANULOCYTES 0.4 % (0-5); LYMPHOCYTES 20.4 % (15-50); MCH 28.5 pg (26.0-34.0); MCHC 31.1 g/dL (31.0-37.0); MCV 91.6 fL (80.0-100.0); MEAN PLATELET VOLUME 10.1 fL (7.4-10.4); MONOCYTES 6.6 % (2-11); NEUTROPHILS 68.6 % (40-80); PLATELET COUNT 525 10x3/uL (130-400); RBC 3.44 10x6/uL (4.00-5.40); RDW 14.8 % (11.5-14.5); WBC 7.8 10x3/uL (4.8-10.8)
[2019-12-02 07:02] LABS: ALBUMIN 2.5 g/dL (3.4-5.0); ANION GAP 12.2 mmol/L (8-16); BILIRUBIN - TOTAL 0.3 mg/dL (0.2-1.3); CALCIUM 8.5 mg/dL (8.5-10.1); CARBON DIOXIDE 28.3 mmol/L (21.0-32.0); CREATININE - SERUM 1.5 mg/dL (0.6-1.3); POTASSIUM - SERUM 4.5 mmol/L (3.5-5.1); PROTEIN - SERUM 5.8 g/dL (6.4-8.2)
[2019-12-02 08:51] VITALS: BP 123/47
[2019-12-02 11:51] VITALS: BP 99/45
[2019-12-02 18:09] VITALS: BP 122/78
[2019-12-02 20:00] VITALS: BP 107/52
--- NOTE | 2019-12-02 21:00 | NUR ---
SUPINE IN BED, A&O X 4. LEFT ARM SLING IN USE, DENIES PAIN AT THIS TIME. IV TO RIGHT FOREARM SALINE LOCKED SO PT CAN AMBULATE IN HALLS. DENIES FURTHER NEEDS AT THIS TIME, CTM.
--- NOTE | 2019-12-03 00:46 | NUR ---
I have reviewed this patient and I concur with the Shift Assessment completed by the Licensed Practical Nurse today this shift.
[2019-12-03 04:00] VITALS: BP 112/54
[2019-12-03 06:08] LABS: BASOPHILS 1.3 % (0-2); EOSINOPHILS 3.6 % (0-7); HEMATOCRIT 32.2 % (36.0-48.0); IMMATURE GRANULOCYTES 0.6 % (0-5); LYMPHOCYTES 25.5 % (15-50); MCH 28.2 pg (26.0-34.0); MCHC 31.1 g/dL (31.0-37.0); MCV 90.7 fL (80.0-100.0); MEAN PLATELET VOLUME 10.2 fL (7.4-10.4); PLATELET COUNT 526 10x3/uL (130-400); RBC 3.55 10x6/uL (4.00-5.40); RDW 14.5 % (11.5-14.5); WBC 6.4 10x3/uL (4.8-10.8)
[2019-12-03 06:50] LABS: ALBUMIN 2.6 g/dL (3.4-5.0); ANION GAP 11.2 mmol/L (8-16); BILIRUBIN - TOTAL 0.38 mg/dL (0.2-1.3); CARBON DIOXIDE 27.6 mmol/L (21.0-32.0); CREATININE - SERUM 1.5 mg/dL (0.6-1.3); MAGNESIUM - SERUM 2.4 mg/dL (1.8-2.4); PROTEIN - SERUM 6.4 g/dL (6.4-8.2)
[2019-12-03 06:53] LABS: POTASSIUM - SERUM 3.8 mmol/L (3.5-5.1)
--- NOTE | 2019-12-03 07:59 | NUR ---
LYING IN BED WATCHING TV. NO ACUTE DISTRESS NOTED. DENIES PAIN AT THIS TIME. BED IN LOWEST POSITION, LOCKED, SIDE RAILS UP X2. CALL LIGHT WITHIN REACH. NEEDS ANTICIPATED AND MET. WILL CONTINUE TO MONITOR
[2019-12-03 08:33] VITALS: BP 130/44
--- NOTE | 2019-12-03 10:15 | MORECARE ---
CASE MANAGEMENT DISCHARGE SUMMARY PATIENT: MARITA LADD UNIT: [id number] ADM DATE: 11/30/19 AGE: 69 : 52 SEX: F ROOM/BED: D.2239 AUTHOR: BEBA ALVARES PHYSICIAN: REFERRING PHYSICIAN: OWEN MEDELLIN DO DATE OF SERVICE: 12/03/19 Discharge Plan Patient Name: MARITA LADD Facility: [facility]:[place] : 1950 Planned Disposition: Anticipated Discharge Date: Discharge Date: Expected LOS: Initial Reviewer: [email or web address] Initial Review Date: 11/29/2019 Generated: 12/03/19 11:14 am DCPIA - Discharge Planning Initial Assessment Updated by [email or web address]: Renay Valdes on 12/03/19 10:08 am * Is the patient Alert and Oriented? Yes * PCP JAVON * Pharmacy [facility] [address] * Preadmission Environment Home Alone * ADLs Independent * List name and contact numbers for known caregivers / representatives who currently or will assist patient after discharge: DANIELLE TORRES, * Community resources currently utilized None * Additional services required to return to the preadmission environment? No * Can the patient safely return to the preadmission environment? Yes * Has this patient been hospitalized within the prior 30 days at any hospital? Yes Coverage Notice Reviewer: [email or web address] Francisco Jara Notice Issued Date-Time: 11/29/2019 14:54 Notice Type: Medicare Outpatient Observation Notice Notice Delivered To: Patient Relationship to Patient: Self Vehicle Controls Engineer Name: Delivery Method: HAND - Hand Delivered Nayla Days: Prior Verbal Notification: Recipient Understood Notice: Yes Recipient Signature: Yes Med Rec Note Co-signed by Attending: Coverage Notice Comment: LARSON explained, signed, given, copy placed in MR Patient Name: MARITA LADD Page 27087 at 1015 All edits/amendments must be made on the electronic document DICTATION DATE: 12/03/19 1015 AUTOMATION ENGINEERING MANAGER: TAYLOR 12/03/19 1015 RPT#: [id number] DC DATE: STATUS: ADM IN [id number] [place] [address] END OF REPORT
--- NOTE | 2019-12-03 10:22 | MORECARE ---
CASE MANAGEMENT DISCHARGE SUMMARY PATIENT: MARITA LADD UNIT: [id number] ADM DATE: 11/30/19 AGE: 69 : 51 SEX: F ROOM/BED: D.2239 AUTHOR: DIA,DOC PHYSICIAN: REFERRING PHYSICIAN: OWEN MEDELLIN DO DATE OF SERVICE: 12/03/19 Discharge Plan Patient Name: MARITA LADD Facility: [facility]:[place] : 1950 Planned Disposition: Anticipated Discharge Date: Discharge Date: Expected LOS: Initial Reviewer: [email or web address] Initial Review Date: 11/29/2019 Generated: 12/03/19 11:21 am Comments DCP- Discharge Planning Updated by [email or web address]: Renay Valdes on 12/03/19 9:[address] Patient Name: MARITA LADD Admission Status: ER Accout number: [id number] Admission Date: 11-30-2019 : 1950 Admission Diagnosis:PHLEBITIS AND THROMBOPHLEBITIS OF OTHER SITES Attending: OWEN MEDELLIN Current LOS: 3 Anticipated DC Date: Planned Disposition: Primary Insurance: [employer] POS Discharge Planning Comments: CM met with patient at bedside after explaining CM role and obtaining verbal consent. CM discussed availability / needs of home health, REHAB and medical equipment. [facility] HAS 02 WITH [facility] NEEDED, LEFT ARM IS IN A SLING. WILL NOT NEED THERAPY OR HH AT THIS TIME. [facility] HAS A FOLLOW UP APPOINTMENT WITH [facility] IN ONE WEEK AND THEY WILL DECIDE WHAT ELSE SHE NEEDS THEN. STATES HER DAUGHTER WILL CHANGE HER DRESSING ON HER SHOULDER AND THAT SHE LIVES NEXT DOOR TO HER. PATIENT DENIES ANY DISCHARGE NEEDS. CM WILL FOLLOW AND ASSIST NEEDED. J2Ee Developer: Renay Valdes DCPIA - Discharge Planning Initial Assessment Updated by [id number]: Renay Valdes on 12/03/19 10:08 am * Is the patient Alert and Oriented? Yes * PCP JAVON * Pharmacy [facility] * Preadmission Environment Home Alone * ADLs Independent * List name and contact numbers for known caregivers / representatives who currently or will assist patient after discharge: DAUGHTERDANIELLE, * Community resources currently utilized None * Additional services required to return to the preadmission environment? No * Can the patient safely return to the preadmission environment? Yes * Has this patient been hospitalized within the prior 30 days at any hospital? Yes Coverage Notice Reviewer: [id number] Francisco Jara Notice Issued Date-Time: 11/29/2019 14:54 Notice Type: Medicare Outpatient Observation Notice Notice Delivered To: Patient Relationship to Patient: Self Airline Managerial Supervisor Name: Delivery Method: HAND - Hand Delivered Nayla Days: Prior Verbal Notification: Recipient Understood Notice: Yes Recipient Signature: Yes Med Rec Note Co-signed by Attending: Coverage Notice Comment: NEO explained, signed, given, copy placed in MR Last DP export: 12/03/19 9:15 a Patient Name: MARITA LADD Page [id number] at 1022 All edits/amendments must be made on the electronic document DICTATION DATE: 12/03/19 1021 NUTRITION INTERNSHIP: TAYLOR 12/03/19 1021 RPT#: [id number] DC DATE: STATUS: ADM IN [facility] [address] [place] [address] END OF REPORT
[2019-12-03] MEDS ORDERED: NICODERM CQ1 EAC3 TOPICAL (11:13)
--- NOTE | 2019-12-03 11:37 | NUR ---
DISCHARGE INSTRUCTIONS REVIEWED WITH PATIENT AND QUESTIONS ANSWERED. BELONGINGS GATHERED. TO FRONT DOOR PER WC
--- NOTE | 2019-12-03 16:39 | MORECARE ---
CASE MANAGEMENT DISCHARGE SUMMARY PATIENT: MARITA LADD UNIT: [id number] ADM DATE: 11/30/19 AGE: 69 : 51 SEX: F ROOM/BED: D.2239 AUTHOR: DIA,DOC PHYSICIAN: REFERRING PHYSICIAN: OWEN MEDELLIN DO DATE OF SERVICE: 12/03/19 Discharge Plan Patient Name: MARITA LADD Facility: [facility]:[place] : 1950 Planned Disposition: Anticipated Discharge Date: Discharge Date: 12/03/2019 Expected LOS: Initial Reviewer: [email or web address] Initial Review Date: 11/29/2019 Generated: 12/03/19 5:38 pm Comments DCP- Discharge Planning Updated by [email or web address]: Renay Valdes on 12/03/19 9:[address] Patient Name: MARITA LADD Admission Status: ER Accout number: [id number] Admission Date: 11-30-2019 : 1950 Admission Diagnosis:PHLEBITIS AND THROMBOPHLEBITIS OF OTHER SITES Attending: OWEN MEDELLIN Current LOS: 3 Anticipated DC Date: Planned Disposition: Primary Insurance: [employer] O POS Discharge Planning Comments: CM met with patient at bedside after explaining CM role and obtaining verbal consent. CM discussed availability / needs of home health, REHAB and medical equipment. [facility] HAS 02 WITH [facility] NEEDED, LEFT ARM IS IN A SLING. WILL NOT NEED THERAPY OR HH AT THIS TIME. [facility] HAS A FOLLOW UP APPOINTMENT WITH [facility] IN ONE WEEK AND THEY WILL DECIDE WHAT ELSE SHE NEEDS THEN. STATES HER DAUGHTER WILL CHANGE HER DRESSING ON HER SHOULDER AND THAT SHE LIVES NEXT DOOR TO HER. PATIENT DENIES ANY DISCHARGE NEEDS. CM WILL FOLLOW AND ASSIST NEEDED. Sales Team Member: Renay Valdes DCPIA - Discharge Planning Initial Assessment Updated by [email or web address]: Renay Valdes on 12/03/19 10:08 am * Is the patient Alert and Oriented? Yes * PCP JAVON * Pharmacy [facility] * Preadmission Environment Home Alone * ADLs Independent * List name and contact numbers for known caregivers / representatives who currently or will assist patient after discharge: DANIELLE TORRES, * Community resources currently utilized None * Additional services required to return to the preadmission environment? No * Can the patient safely return to the preadmission environment? Yes * Has this patient been hospitalized within the prior 30 days at any hospital? Yes Coverage Notice Reviewer: [id number] Francisco Jara Notice Issued Date-Time: 11/29/2019 14:54 Notice Type: Medicare Outpatient Observation Notice Notice Delivered To: Patient Relationship to Patient: Self Conduit Installer Name: Delivery Method: HAND - Hand Delivered Nayla Days: Prior Verbal Notification: Recipient Understood Notice: Yes Recipient Signature: Yes Med Rec Note Co-signed by Attending: Coverage Notice Comment: NEO explained, signed, given, copy placed in MR Last DP export: 12/03/19 9:22 a Patient Name: MARITA LADD Page [phone] at 1639 All edits/amendments must be made on the electronic document DICTATION DATE: 12/03/198 LEASE ANALYST: TAYLOR 12/03/19 1638 RPT#: [id number] DC DATE:12/03/19 STATUS: DIS IN [facility] [address] [place] [address] END OF REPORT
== END 2019-12-03 11:39 | disposition home or self-care (01) | DRG 264 ==
LOC: D.ER 10:32 → D.MS 12:51 → OBSVTIME 11-30 10:37 → D.MS 11-30 14:33 → D.SDCHOLD 12-02 07:55 → D.MS 12-03 11:39
PROVIDERS: Family Medicine; Orthopaedic Surgery; ADMIT Family Medicine; ATTEND Family Medicine
PROC: 0RC Upper Joints, Extirpation (ICD-10-PCS; principal; 2019-11-30)
PROC: 0JBF0ZZ Excision of Left Upper Arm Subcutaneous Tissue and Fascia, Open Approach (ICD-10-PCS; 2019-11-30)
DX: I80.8 Phlebitis and thrombophlebitis of other sites (principal); N17.9 Acute kidney failure, unspecified; J96.11 Chronic respiratory failure with hypoxia; D64.9 Anemia, unspecified; I10 Essential (primary) hypertension; I25.10 Atherosclerotic heart disease of native coronary artery without angina pectoris; F17.200 Nicotine dependence, unspecified, uncomplicated; J45.909 Unspecified asthma, uncomplicated; F41.8 Other specified anxiety disorders; L40.9 Psoriasis, unspecified; M19.90 Unspecified osteoarthritis, unspecified site; S40.022A Contusion of left upper arm, initial encounter; J44.9 Chronic obstructive pulmonary disease, unspecified; K21.9 Gastro-esophageal reflux disease without esophagitis; G56.10 Other lesions of median nerve, unspecified upper limb

== ENCOUNTER → 2019-12-17 14:13 | Outpatient (CLI) | payer OTHER, MEDICARE ==
[2019-12-01 14:53] VITALS: BMI 30.7
[~2019-12-17 14:13] MED LIST changes: +NICODERM CQ1 EAC3 TOPICAL
== END | disposition home or self-care (01) ==
LOC: D.US 14:13
PROVIDERS: ATTEND Clinical Nurse Specialist Family Health
DX: R22.32 Localized swelling, mass and lump, left upper limb (principal)

== ENCOUNTER → 2020-07-08 17:51 | Outpatient (CLI) | payer OTHER, MEDICARE ==
[2020-03-24 22:29] VITALS: BMI 30.1
[~2020-07-08 17:51] MED LIST changes: +GABAPENTIN300 MG PO; +LEVOFLOXACIN500 MG PO; +ROXICODONE15 MG PO
[2020-07-08 18:59] LABS: BASOPHILS 0.8 % (0-2); EOSINOPHILS 1.6 % (0-7); HEMATOCRIT 40.8 % (36.0-48.0); HEMOGLOBIN 12.8 g/dL (12-16); IMMATURE GRANULOCYTES 0.1 % (0-5); LYMPHOCYTE ABS# 1.06 10x3/uL (1.18-3.74); MCH 28.2 pg (26.0-34.0); MCHC 31.4 g/dL (31.0-37.0); MCV 89.9 fL (80.0-100.0); MEAN PLATELET VOLUME 11.6 fL (7.4-10.4); MONOCYTES 5.2 % (2-11); NEUTROPHIL ABS# 5.45 10x3/uL (1.56-6.13); NEUTROPHILS 77.3 % (40-80); PLATELET COUNT 338 10x3/uL (130-400); RBC 4.54 10x6/uL (4.00-5.40); WBC 7.1 10x3/uL (4.8-10.8)
[2020-07-08 20:04] LABS: ERYTHROCYTE SEDIMENTATION RATE 21 mm/hr (0-30)
== END | disposition home or self-care (01) ==
LOC: D.LABREF 17:51
PROVIDERS: ATTEND Orthopaedic Surgery
DX: M19.012 Primary osteoarthritis, left shoulder (principal); M25.512 Pain in left shoulder

== ENCOUNTER 2020-08-24 17:22 | Inpatient (IN) | payer OTHER, MEDICARE ==
[2020-08-20 15:45] LABS: BASOPHILS 1.2 % (0-2); EOSINOPHILS 2.4 % (0-7); HEMATOCRIT 38.2 % (36.0-48.0); HEMOGLOBIN 12.6 g/dL (12-16); LYMPHOCYTES 27.6 % (15-50); MCHC 33.1 g/dL (31.0-37.0); MCV 84.8 fL (80.0-100.0); MEAN PLATELET VOLUME 9.1 fL (7.4-10.4); MONOCYTES 8.1 % (2-11); NEUTROPHILS 60.7 % (40-80); PLATELET COUNT 305 10x3/uL (130-400); RBC 4.51 10x6/uL (4.00-5.40); RDW 15.7 % (11.5-14.5); WBC 7.1 10x3/uL (4.8-10.8)
[2020-08-20 15:54] LABS: APTT 26.4 SECONDS (22.8-39.4); INR 1.04 (0.85-1.17); PROTIME 12.6 SECONDS (11.6-15.0)
[2020-08-20 16:04] LABS: ANION GAP 9.8 mmol/L (8-16); CALCIUM 8.8 mg/dL (8.5-10.1); CARBON DIOXIDE 31.4 mmol/L (21.0-32.0); CREATININE - SERUM 1.1 mg/dL (0.6-1.3); POTASSIUM - SERUM 4.2 mmol/L (3.5-5.1)
[2020-08-20 16:18] LABS: BACTERIA FEW HPF (<MOD); BILIRUBIN NEGATIVE (NEGATIVE); KETONE NEGATIVE mg/dL (< 1+); NITRITE NEGATIVE (NEGATIVE); PH 5.5 (5.0-8.0); SQUAMOUS EPITHELIAL 2 HPF (0-4); UROBILINOGEN NORMAL mg/dL (< 2); WHITE CELLS - URINE 1 HPF (0-4)
[~2020-08-24] VITALS: Ht 157.5 cm; Wt 79.5 kg
[2020-08-24 11:24] VITALS: BMI 32.2
[~2020-08-24 17:22] MED LIST changes: +TRELEGY ELLIPT1 EACH INH
[2020-08-24 18:31] VITALS: BP 113/58
--- NOTE | 2020-08-24 18:51 | NUR ---
PATIENT TO ROOM WITH IV INTACT. NO COMPLAINTS OR SIGNS OF DISTRESS. VS STABLE. O2 PLACED ON PATIENT. UP TO 99% ON 2LNC. WAS DIPPING DOWN INTO THE UPPER 80'S ON RA WHILE SLEEPING. LEFT SHOULDER INCISION AND DRAIN. CDI. CALL LIGHT WITHIN REACH.
[2020-08-24 20:00] VITALS: BP 117/60
[2020-08-24 23:51] VITALS: BP 115/65; Ht 157.5 cm; Wt 79.5 kg
[2020-08-25] VITALS: BP 112/48
--- NOTE | 2020-08-25 01:02 | NUR ---
I have reviewed this patient and I concur with the Shift Assessment completed by the Licensed Practical Nurse today this shift.
[2020-08-25 04:00] VITALS: BP 127/55
[2020-08-25 06:18] LABS: HEMATOCRIT 34.5 % (36.0-48.0); HEMOGLOBIN 11.2 g/dL (12-16); MCH 27.7 pg (26.0-34.0); MCHC 32.6 g/dL (31.0-37.0); MCV 85.2 fL (80.0-100.0); MEAN PLATELET VOLUME 9.4 fL (7.4-10.4); RBC 4.05 10x6/uL (4.00-5.40); RDW 15.6 % (11.5-14.5); WBC 12.1 10x3/uL (4.8-10.8)
--- NOTE | 2020-08-25 06:35 | OP ---
PATIENT NAME: CHERYL LADD MEDICAL RECORD: [id number] :[birth year] LOCATION:[id number] ADMISSION DATE:08/24/20 SURGEON: ORLANDO FOWLER DO DATE OF OPERATION: 08/24/2020 PROCEDURE PERFORMED: Revision left reverse total shoulder arthroplasty. 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 POSTOPERATIVE DIAGNOSIS: A loose implant of the left reverse total shoulder. INDICATIONS: Ms. 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 The humerus was fractured during that procedure and it cabled and implant was put in. She did have a hematoma, which I washed out and then she followed with her surgeon and did the surgery and has not had good results, had continued pain down her arm. X-rays looked that there was definite loosening. There was sign on the x-ray of loosening. I informed her we could revise this and that she would be at risk for infection, bleeding, damage to nerves and vessels, need for further surgery, infection with a high likelihood as I thought due to loosening even though her ESR, CRP, and white count were not elevated, but I would take all the implants out and put in new one if that were the case that were not infected. She was okay with that. She is aware these risks as well as and she signed the consent. SURGEON: Orlando Fowler DO DESCRIPTION OF PROCEDURE: The patient was taken to the operative suite, given a block by anesthesia in preoperative area. Laid in supine position, given general anesthetic and LMA was placed. The patient was then given 900 mg clindamycin and a gram of TXA. She has been placed in beach chair position. Left upper extremity was prepped and draped in sterile fashion. A timeout was performed. Everyone was in agreement with correct side, site, patient, and procedure. I then made an incision over the old wound. Made careful dissection down to the humerus, the humeral stem came right out without any effort. I then removed the 3 cables around the humerus and exposed the glenoid. The glenoid came out and left a void that I filled with cancellous bone chips. I then put a center pin and reamed from the [employer] with a superior offset glenosphere. Once I reamed, then put in the baseplate and then put in a 6.5 screw in the center with 35 length and then put in 3 peripheral screws, two 30 and one 25. The two 30 over the superior, posterior, and the posterior inferior and the 25 was the anterior superior. I then impacted on the glenoid, it was a +3 with neutral offset. I then exposed the humerus and had removed the cables and had to do necessary reaming and broaching and saw that we need to cut more humerus in order to fit the implant in. I then cut it twice and then put a small stem down with a 42 proximal stem on it with a standard tray, reduced that and it fit very well, had good tension on the deltoid and the conjoined tendon and good range of motion. I had also had to remove some bone that was posterior left over from the posterior humeral head and proximal humerus. Once I did that, we retrialed and then trialled until well. I then removed the trials and impacted the actual implant and reduced it. It again had good motion. There was absolutely no shucking, no space, and no signs of easy dislocation with abduction, external rotation or in any plane of motion. I then irrigated with a povidone iodine solution and rinsed and put in a drain posteriorly, put in Kena and vancomycin and tobramycin powder. Kev Taveras, certified visitor service assistant then closed in OPERATIVE REPORT [id number] [facility] A standard fashion and dressed the wound with a Prineo glue and Telfa and Tegaderm and then put two Tegaderms on the drain exiting posteriorly. She was then awakened, put in a sling, taken to recovery in stable condition. Blood loss approximately 300 mL. COMPLICATIONS: None. TRANSINT:[id number] Voice Confirmation ID: [id number] DOCUMENT ID: [id number] ORLANDO FOWLER DO at 0635 CC: [id number] DICTATION DATE: 08/24/201724 SENIOR HOUSEKEEPER: 08/24/201951 ADM IN [facility] [address] [place] [address]
[2020-08-25] MEDS ORDERED: PERCOCET 10-321 EAC1 PO (07:18)
[2020-08-25 07:57] VITALS: BP 114/53
[2020-08-25 09:45] LABS: ALBUMIN 2.8 g/dL (3.4-5.0); ANION GAP 11.6 mmol/L (8-16); BILIRUBIN - TOTAL 0.19 mg/dL (0.2-1.3); CALCIUM 8.1 mg/dL (8.5-10.1); CARBON DIOXIDE 27.4 mmol/L (21.0-32.0); CREATININE - SERUM 1.7 mg/dL (0.6-1.3); PROTEIN - SERUM 6.3 g/dL (6.4-8.2)
[2020-08-25 09:50] LABS: BASOPHILS 0.3 % (0-2); EOSINOPHILS 0.1 % (0-7); HEMOGLOBIN 11.4 g/dL (12-16); LYMPHOCYTES 5.2 % (15-50); MCH 27.8 pg (26.0-34.0); MCHC 32.4 g/dL (31.0-37.0); MCV 85.8 fL (80.0-100.0); MEAN PLATELET VOLUME 9.7 fL (7.4-10.4); NEUTROPHILS 90.4 % (40-80); PLATELET COUNT 293 10x3/uL (130-400); RBC 4.08 10x6/uL (4.00-5.40); RDW 15.7 % (11.5-14.5)
--- NOTE | 2020-08-25 12:00 | NUR ---
PATIENT AMBULATED AND IS UP IN CHAIR NOW. IV INTACT. DRAIN INTACT. NO COMPLAINTS. CALL LIGHT WITHIN REACH.
[2020-08-25 12:06] VITALS: BP 125/58
--- NOTE | 2020-08-25 17:06 | NUR ---
PATIENT RECIEVED DC INSTRUCTIONS. VERBALIZED UNDERSTANDING. IV REMOVED WITH CATH TIP INTACT. DRAIN REMOVED AND DRESSING PLACED OVER SITE. DRESSING TO SHOULDER CHANGED ORDERED. PRESCRIPION GIVEN TO PATIENT DAUGHTER WITH PAPER WORK. DAUGHTER AT BEDSIDE. ESCORTED PATIENT OUT OF HOSPITAL VIA WITH PERSONAL BELONGINGS TO PRIVATE VEHICLE.
== END 2020-08-25 17:24 | disposition home or self-care (01) | DRG 483 ==
LOC: D.OPS 17:22 → D.MS 17:23
PROVIDERS: Family Medicine; ADMIT Orthopaedic Surgery; ATTEND Orthopaedic Surgery
PROC: 0RPK0JZ Removal of Synthetic Substitute from Left Shoulder Joint, Open Approach (ICD-10-PCS; 2020-08-24)
PROC: 0RRK00Z Replacement of Left Shoulder Joint with Reverse Ball and Socket Synthetic Substitute, Open Approach (ICD-10-PCS; principal; 2020-08-24 11:30)
DX: T84.038A Mechanical loosening of other internal prosthetic joint, initial encounter (principal); I10 Essential (primary) hypertension; Z85.528 Personal history of other malignant neoplasm of kidney; I25.10 Atherosclerotic heart disease of native coronary artery without angina pectoris; J44.9 Chronic obstructive pulmonary disease, unspecified; K21.9 Gastro-esophageal reflux disease without esophagitis; G89.29 Other chronic pain